=== PATIENT | female | born 1990 ===

== ENCOUNTER 2016-12-24 20:46 | Emergency (ER) | payer OTHER ==
[2016-12-24] MEDS: Albuterol-Ipratrop 3 mg / 0.5 (3 ml) UD IH SCH ×3 (20:50→21:18)
[2016-12-24 20:54] VITALS: BMI 19.3
[2016-12-24 20:58] VITALS: TEMP 97.8
--- NOTE | 2016-12-24 22:19 | ED PDOC ---
Arrival/HPI - General Chief Complaint: Respiratory Distress Time Seen by Provider: 12/24/16 20:49 Historian: Patient - History of Present Illness Narrative History of Present Illness (Text): 12/24/16 22:16 Laura Phipps is a 26 year old female, with a history of bronchial asthma, presents to the emergency department complaining of shortness of breath and wheezing. States she used home breathing treatments for minimal relief. Denies fever, chills, headache, dizziness, chest pain, nausea, vomiting, diarrhea, abdominal pain, urinary symptoms, or any other complaints at this time. Time/Duration: 1 hour Symptom Onset: Gradual Symptom Course: Unchanged Severity Level: Mild Activities at Onset: Light Past Medical History - Provider Review Nursing Documentation Reviewed: Yes - Infectious Disease Hx of Infectious Diseases: None - Cardiac Hx Cardiac Disorders: No - Pulmonary Hx Respiratory Disorders: Yes Hx Asthma: Yes - Neurological Hx Neurological Disorder: No - HEENT Hx HEENT Disorder: No - Renal Hx Renal Disorder: No - Endocrine/Metabolic Hx Endocrine Disorders: No - Hematological/Oncological Hx Blood Disorders: No - Integumentary Hx Dermatological Disorder: No - Musculoskeletal/Rheumatological Hx Musculoskeletal Disorders: No - Gastrointestinal Hx Gastrointestinal Disorders: No - Genitourinary/Gynecological Hx Genitourinary Disorders: No - Psychiatric Hx Psychophysiologic Disorder: No Hx Substance Use: No - Surgical History Other/Comment: Breast augmentation. Liposuction - Anesthesia Hx Anesthesia: Yes Hx Anesthesia Reactions: No Hx Malignant Hyperthermia: No Family/Social History - Physician Review Nursing Documentation Reviewed: Yes Family/Social History: No Known Family HX Smoking Status: smk hookah Hx Alcohol Use: Yes Hx Substance Use: No Allergies/Home Meds Allergies/Adverse Reactions: Allergies pollen extracts Allergy (Verified 10/01/16 16:35) SHORTNESS OF BREATH maple Allergy (Uncoded 09/10/14 13:16) RASH Review of Systems - Physician Review All systems were reviewed & negative as marked: Yes - Review of Systems Constitutional: Normal. absent: Fatigue, Fevers Respiratory: SOB. absent: Cough, Sputum Cardiovascular: Normal. absent: Chest Pain, Palpitations Gastrointestinal: Normal. absent: Abdominal Pain, Diarrhea, Nausea, Vomiting Neurological: Normal. absent: Headache, Dizziness Psychiatric: Normal Physical Exam Vital Signs Reviewed: Yes Vital Signs Temp Pulse Resp BP Pulse Ox 12/24/16 20:58 97.8 F 110 H 26 H 116/88 95 12/24/16 20:46 26 H 100 Temperature: Afebrile Blood Pressure: Normal Pulse: Tachycardic Respiratory Rate: Normal Appearance: Positive for: Well-Appearing, Non-Toxic, Comfortable Pain Distress: None Mental Status: Positive for: Alert and Oriented X 3 - Systems Exam Head: Present: Atraumatic, Normocephalic Pupils: Present: PERRL Extroacular Muscles: Present: EOMI Conjunctiva: Present: Normal Mouth: Present: Moist Mucous Membranes Respiratory/Chest: Present: Wheezes (wheezing bilaterally ). No: Respiratory Distress, Accessory Muscle Use Cardiovascular: Present: Regular Rate and Rhythm, Normal S1, S2. No: Murmurs Abdomen: Present: Normal Bowel Sounds. No: Tenderness, Distention, Peritoneal Signs, Rebound, Guarding Upper Extremity: Present: Normal Inspection. No: Cyanosis, Edema Lower Extremity: Present: Normal Inspection. No: Edema Neurological: Present: GCS=15, CN II-XII Intact, Speech Normal, Motor Func Grossly Intact, Normal Sensory Function Skin: Present: Warm, Dry, Normal Color. No: Rashes Psychiatric: Present: Alert, Oriented x 3, Normal Insight, Normal Concentration Medical Decision Making ED Course and Treatment: 12/24/16 22:19 Impression: A 26 year old female who presents to the emergency department complaining of shortness of breath and wheezing. Plan: -- Duoneb -- Solumedrol Progress Notes: - Medication Orders Current Medication Orders: Discontinued Medications Albuterol/Ipratropium (Duoneb 3 Mg/0.5 Mg (3 Ml) Ud) 3 ml IH Q15M CHRISTIANO Stop: 12/24/16 21:31 Last Admin: 12/24/16 21:18 Dose: 3 ml Methylprednisolone (Solu-Medrol) 125 mg IVP STAT STA Stop: 12/24/16 20:50 Last Admin: 12/24/16 20:49 Dose: 125 mg - Juneibe Statement The provider has reviewed the documentation as recorded by the Rozina Singleton Provider Attestation: All medical record entries made by the Rozina were at my direction and personally dictated by me. I have reviewed the chart and agree that the record accurately reflects my personal performance of the history, physical exam, medical decision making, and the department course for this patient. I have also personally directed, reviewed, and agree with the discharge instructions and disposition. Disposition/Present on Arrival - Present on Arrival Any Indicators Present on Arrival: No History of DVT/PE: No History of Uncontrolled Diabetes: No Urinary Catheter: No History of Decub. Ulcer: No History Surgical Site Infection Following: None - Disposition Have Diagnosis and Disposition been Completed?: Yes Diagnosis: Asthma attack Disposition: HOME/ ROUTINE Disposition Time: 22:34 Patient Plan: Discharge Condition: GOOD Discharge Instructions (ExitCare): Asthma (ED) Additional Instructions: Take meds as prescribed/follow up with your doctor Prescriptions: predniSONE [Prednisone] 40 mg PO DAILY #10 tab Albuterol HFA [Ventolin HFA 90 mcg/actuation (8 g)] 2 puff IH [id number] PRN #1 puff PRN Reason: Wheezing Referrals: Payton Orantes MD [Primary Care Provider] - Follow up with primary
[2016-12-24 22:43] VITALS: BP 116/60; PULSE 100; RESP 18; O2SAT 99
== END 2016-12-24 22:45 | disposition home or self-care (01) ==
LOC: ED 20:46
DX: J45.909 Unspecified asthma, uncomplicated (principal); Z72.0 Tobacco use
CPT/HCPCS: 96374; 99284; J2930

== ENCOUNTER 2017-04-10 01:50 | Emergency (ER) | payer OTHER ==
--- NOTE | 2017-04-10 01:54 | ED PDOC ---
Arrival/HPI - General Time Seen by Provider: 04/10/17 01:53 Historian: Patient, Parent - History of Present Illness Narrative History of Present Illness (Text): 04/10/17 01:54 Laura Phipps is a 26 year old female, whose past medical history includes asthma and seasonal allergies, who presents to the Emergency department brought in by EMS complaining of shortness of breath and wheezing tonight. Patient states symptoms are similar in quality to previous asthma symptoms but notes it may have been worsened due to recent humid weather. Patient received multiple nebulizer treatments, magnesium, and Solu-medrol in the field with some relief. Patient denies any fever, chills, chest pain, nausea, vomiting, diarrhea, neck pain, headache, dizziness, or any other complaints. Time/Duration: Other (tonight) Symptom Onset: Gradual Symptom Course: Unchanged Activities at Onset: Rest, Light Context: Home Past Medical History - Provider Review Nursing Documentation Reviewed: Yes - Infectious Disease Hx of Infectious Diseases: None - Cardiac Hx Cardiac Disorders: No - Pulmonary Hx Respiratory Disorders: Yes Hx Asthma: Yes - Neurological Hx Neurological Disorder: No - HEENT Hx HEENT Disorder: No - Renal Hx Renal Disorder: No - Endocrine/Metabolic Hx Endocrine Disorders: No - Hematological/Oncological Hx Blood Disorders: No - Integumentary Hx Dermatological Disorder: No - Musculoskeletal/Rheumatological Hx Musculoskeletal Disorders: No - Gastrointestinal Hx Gastrointestinal Disorders: No - Genitourinary/Gynecological Hx Genitourinary Disorders: No - Psychiatric Hx Psychophysiologic Disorder: No Hx Substance Use: No - Surgical History Other/Comment: Breast augmentation. Liposuction - Anesthesia Hx Anesthesia: Yes Hx Anesthesia Reactions: No Hx Malignant Hyperthermia: No Family/Social History - Physician Review Nursing Documentation Reviewed: Yes Family/Social History: Unknown Family HX Smoking Status: smk hookah Hx Alcohol Use: Yes Hx Substance Use: No Allergies/Home Meds Allergies/Adverse Reactions: Allergies pollen extracts Allergy (Verified 10/01/16 16:35) SHORTNESS OF BREATH maple Allergy (Uncoded 09/10/14 13:16) RASH Review of Systems - Physician Review All systems were reviewed & negative as marked: Yes - Review of Systems Constitutional: Normal. absent: Fevers Eyes: Normal ENT: Normal Respiratory: SOB, Wheezing Cardiovascular: Normal. absent: Chest Pain Gastrointestinal: Normal. absent: Abdominal Pain, Diarrhea, Nausea, Vomiting Genitourinary Female: Normal. absent: Dysuria, Frequency, Hematuria, Urine Output Changes Musculoskeletal: Normal. absent: Back Pain, Neck Pain Skin: Normal. absent: Rash Neurological: Normal. absent: Headache, Dizziness Endocrine: Normal Hemo/Lymphatic: Normal Psychiatric: Normal Physical Exam Vital Signs Reviewed: Yes Vital Signs Temp Pulse Resp BP Pulse Ox 04/10/17 02:56 119 H 20 94/53 L 100 04/10/17 02:05 98.2 F 112 H 17 96/54 L 100 04/10/17 02:00 24 04/10/17 01:55 98.2 F 148 H 39 H 129/72 97 Temperature: Afebrile Blood Pressure: Normal Pulse: Tachycardic Respiratory Rate: Normal Appearance: Positive for: Well-Appearing, Non-Toxic, Comfortable Pain Distress: None Mental Status: Positive for: Alert and Oriented X 3 - Systems Exam Head: Present: Atraumatic, Normocephalic Pupils: Present: PERRL Extroacular Muscles: Present: EOMI Conjunctiva: Present: Normal Mouth: Present: Moist Mucous Membranes Neck: Present: Normal Range of Motion Respiratory/Chest: Present: Wheezes (Slight expiratory wheeze). No: Respiratory Distress, Accessory Muscle Use Cardiovascular: Present: Regular Rate and Rhythm, Normal S1, S2. No: Murmurs Abdomen: Present: Normal Bowel Sounds. No: Tenderness, Distention, Peritoneal Signs Back: Present: Normal Inspection Upper Extremity: Present: Normal Inspection. No: Cyanosis, Edema Lower Extremity: Present: Normal Inspection. No: Edema Neurological: Present: GCS=15, CN II-XII Intact, Speech Normal Skin: Present: Warm, Dry, Normal Color. No: Rashes Psychiatric: Present: Alert, Oriented x 3, Normal Insight, Normal Concentration Medical Decision Making ED Course and Treatment: 04/10/17 01:54 Impression: 26 year old female complaining of shortness of breath and wheezing. Differential Diagnosis included but are not limited to: asthma exacerbation Plan: -- EKG -- Chest X-ray -- Labs -- Duoneb -- Reassess and disposition Prior Visits: Notes and results from previous visits were reviewed. On 12/24/2016, pt was seen in the Emergency department for shortness of breath and wheezing. Pt was d/c home. Progress Notes: Reviewed EKG, sinus tachycardia at [address]-segment elevations or depressions, no T-wave inversions, normal intervals. 04/10/17 04:41 Reviewed radiology, Chest X-ray shows no acute processes. 04/10/17 05:04 On reevaluation, the patient 100% feels better and is in no acute distress. Wheezing has resolved. Patient is stable for discharge. Patient was instructed to follow up with physician/clinic in 1-2 days or return if symptoms persist/ worsen or new concerning symptoms arise. - Lab Interpretations Lab Results: 04/10/17 02:04 04/10/17 02:04 Lab Results 04/10/17 02:04: WBC 12.3 H D, RBC 4.68, Hgb 14.0, Hct 40.5, MCV 86.5, MCH 29.9, MCHC 34.6, RDW 12.3, Plt Count 290, MPV 9.7 04/10/17 02:04: Sodium 143, Potassium 3.2 L, Chloride 107, Carbon Dioxide 23, Anion Gap 16, BUN 8, Creatinine 0.7, Est GFR ( Amer) > 60, Est GFR (Non- Af Amer) > 60, Random Glucose 146 H, Calcium 8.6, Total Bilirubin 0.5, AST 29, ALT 24, Alkaline Phosphatase 98, Total Protein 7.3, Albumin 3.9, Globulin 3.4, Albumin/Globulin Ratio 1.2 I have reviewed the lab results: Yes - RAD Interpretation Radiology Orders: 04/10/17 02:00 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 I have reviewed the chart and agree that the record accurately reflects my personal performance of the history, physical exam, medical decision making, and the department course for this patient. I have also personally directed, reviewed, and agree with the discharge instructions and disposition. Disposition/Present on Arrival - Present on Arrival Any Indicators Present on Arrival: No History of DVT/PE: No History of Uncontrolled Diabetes: No Urinary Catheter: No History Surgical Site Infection Following: None - Disposition Have Diagnosis and Disposition been Completed?: Yes Diagnosis: Asthma exacerbation Disposition: HOME/ ROUTINE Disposition Time: 05:04 Patient Plan: Discharge Patient Problems: Current Active Problems Problem Status Onset Asthma exacerbation Acute Condition: GOOD Discharge Instructions (ExitCare): Asthma (ED) Additional Instructions: Meds as prescribed/follow up with your doctor this week/any recurrent worsening symptoms return to the emergency room Prescriptions: predniSONE [Prednisone] 40 mg PO DAILY #10 tab
[2017-04-10 01:56] VITALS: BMI 20.7
[2017-04-10 02:03] VITALS: TEMP 98.2
[2017-04-10] MEDS ORDERED: Albuterol-Ipratrop 3 mg / 0.5 (3 ml) UD IH STA (02:06)
[2017-04-10 02:20] LABS: HEMATOCRIT 40.5 % (36.0-48.0); MEAN CELL VOLUME 86.5 fl (80.0-105.0); MEAN CORPUSCULAR HEMOGLOBIN 29.9 pg (25.0-35.0); MEAN CORPUSCULAR HGB CONC 34.6 g/dl (31.0-37.0); MEAN PLATELET VOLUME 9.7 fl (7.0-11.0); RED CELL DISTRIBUTION WIDTH 12.3 % (11.5-14.5); WHITE BLOOD COUNT 12.3 10^3/ul (4.5-11.0)
[2017-04-10 02:32] LABS: ALB/GLOB RATIO 1.2 (1.1-1.8); ALKALINE PHOSPHATASE 98 U/L (38-133); BILIRUBIN,TOTAL 0.5 mg/dL (0.2-1.3); BLOOD UREA NITROGEN 8 mg/dL (7-21); CALCIUM 8.6 mg/dL (8.4-10.5); CARBON DIOXIDE 23 mmol/L (21-33); CHLORIDE 107 mmol/L (95-110); GFR AFRICAN-AMERICAN > 60; GLUCOSE,RANDOM 146 mg/dL (70-110); POTASSIUM 3.2 mmol/L (3.6-5.0); SODIUM 143 mmol/L (132-148); TOTAL PROTEIN 7.3 g/dL (5.8-8.3)
[2017-04-10 02:38] LABS: ALT/SGPT 24 U/L (7-56); AST/SGOT 29 U/L (15-39)
[2017-04-10 02:57] VITALS: BP 94/53
[2017-04-10] MEDS ORDERED: Potassium Chloride 20 mEq ER Tab PO STA (03:28)
[2017-04-10 05:15] VITALS: RESP 16
[2017-04-10 05:16] VITALS: PULSE 97; O2SAT 97
--- NOTE | 2017-04-10 07:06 | RAD ---
HISTORY: sob COMPARISON: No prior. FINDINGS: LUNGS: No active pulmonary disease. PLEURA: No significant pleural effusion identified, no pneumothorax apparent. CARDIOVASCULAR: Normal. OSSEOUS STRUCTURES: No significant abnormalities. VISUALIZED UPPER ABDOMEN: Normal. OTHER FINDINGS: None. IMPRESSION: No active disease.
--- NOTE | 2017-04-10 17:11 | CARD ---
APPROVED REPORT EKG Measurement Heart [id number] <Conclusion> Sinus tachycardia Otherwise normal ECG
== END 2017-04-10 05:16 | disposition home or self-care (01) ==
LOC: ED 01:50
DX: J45.901 Unspecified asthma with (acute) exacerbation (principal)

== ENCOUNTER 2017-04-29 02:22 | Emergency (ER) | payer OTHER ==
[2017-04-29] MEDS ORDERED: Albuterol-Ipratrop 3 mg / 0.5 (3 ml) UD ONE (02:26)
--- NOTE | 2017-04-29 02:29 | ED PDOC ---
Arrival/HPI - General Time Seen by Provider: 04/29/17 02:24 Historian: Patient, EMS - History of Present Illness Narrative History of Present Illness (Text): 04/29/17 02:29 Laura Phipps is a 26 year old female, whose past medical history includes asthma and seasonal allergies, who presents to the Emergency department brought in by EMS complaining of shortness of breath and wheezing tonight. Patient states symptoms are similar in quality to previous asthma symptoms. Patient states she had steroid nebulizer treatments at home. Patient received multiple nebulizer treatments and IV Solu-medrol in the field with some relief. Patient denies any fever, chills, chest pain, nausea, vomiting, diarrhea, neck pain, headache, dizziness, or any other complaints. Time/Duration: Other (tonight) Symptom Onset: Gradual Symptom Course: Unchanged Activities at Onset: Light Context: Home Past Medical History - Provider Review Nursing Documentation Reviewed: Yes - Infectious Disease Hx of Infectious Diseases: None - Cardiac Hx Cardiac Disorders: No - Pulmonary Hx Respiratory Disorders: Yes Hx Asthma: Yes - Neurological Hx Neurological Disorder: No - HEENT Hx HEENT Disorder: No - Renal Hx Renal Disorder: No - Endocrine/Metabolic Hx Endocrine Disorders: No - Hematological/Oncological Hx Blood Disorders: No - Integumentary Hx Dermatological Disorder: No - Musculoskeletal/Rheumatological Hx Musculoskeletal Disorders: No - Gastrointestinal Hx Gastrointestinal Disorders: No - Genitourinary/Gynecological Hx Genitourinary Disorders: No - Psychiatric Hx Psychophysiologic Disorder: No Hx Substance Use: No - Surgical History Other/Comment: Breast augmentation. Liposuction - Anesthesia Hx Anesthesia: Yes Hx Anesthesia Reactions: No Hx Malignant Hyperthermia: No Family/Social History - Physician Review Nursing Documentation Reviewed: Yes Family/Social History: Unknown Family HX Smoking Status: smk hookah Hx Alcohol Use: Yes Hx Substance Use: No Allergies/Home Meds Allergies/Adverse Reactions: Allergies pollen extracts Allergy (Verified 10/01/16 16:35) SHORTNESS OF BREATH maple Allergy (Uncoded 09/10/14 13:16) RASH Review of Systems - Physician Review All systems were reviewed & negative as marked: Yes - Review of Systems Constitutional: Normal. absent: Fevers Eyes: Normal ENT: Normal Respiratory: SOB, Wheezing Cardiovascular: Normal. absent: Chest Pain Gastrointestinal: Normal. absent: Abdominal Pain, Diarrhea, Nausea, Vomiting Genitourinary Female: Normal. absent: Dysuria, Frequency, Hematuria Musculoskeletal: Normal. absent: Back Pain, Neck Pain Skin: Normal. absent: Rash Neurological: Normal. absent: Headache, Dizziness Endocrine: Normal Hemo/Lymphatic: Normal Psychiatric: Normal Physical Exam Vital Signs Reviewed: Yes Vital Signs Temp Pulse Resp BP Pulse Ox 04/29/17 04:22 98.2 F 92 H 18 128/84 99 04/29/17 02:39 98.2 F 121 H 18 131/80 97 04/29/17 02:22 24 Temperature: Afebrile Blood Pressure: Normal Pulse: Regular Respiratory Rate: Normal Appearance: Positive for: Well-Appearing, Non-Toxic, Comfortable Pain Distress: None Mental Status: Positive for: Alert and Oriented X 3 - Systems Exam Head: Present: Atraumatic, Normocephalic Pupils: Present: PERRL Extroacular Muscles: Present: EOMI Conjunctiva: Present: Normal Mouth: Present: Moist Mucous Membranes Neck: Present: Normal Range of Motion Respiratory/Chest: Present: Wheezes (Wheezing bilaterally). No: Respiratory Distress, Accessory Muscle Use Cardiovascular: Present: Regular Rate and Rhythm, Normal S1, S2. No: Murmurs Abdomen: Present: Normal Bowel Sounds. No: Tenderness, Distention, Peritoneal Signs Back: Present: Normal Inspection Upper Extremity: Present: Normal Inspection. No: Cyanosis, Edema Lower Extremity: Present: Normal Inspection. No: Edema Neurological: Present: GCS=15, CN II-XII Intact, Speech Normal Skin: Present: Warm, Dry, Normal Color. No: Rashes Psychiatric: Present: Alert, Oriented x 3, Normal Insight, Normal Concentration Medical Decision Making ED Course and Treatment: 04/29/17 02:29 Impression: 26 year old female c/o shortness of breath and wheezing tonight. Differential Diagnosis included but are not limited to: asthma exacerbation Plan: -- Labs -- Duoneb -- Reassess and disposition Progress Notes: Pt received Solu-medrol IV in the field and states she was unable to fill her prescription of medication for her nebulizer machine earlier today. 04/29/17 04:10 On re-evaluation, pt feels 100% better. Lungs are clear to auscultation bilaterally. All questions answered and there is agreement with the plan to discharge home with instructions. Patient stable for discharge. Instructed to follow-up with her PMD or return if symptoms persist or worsen. - Medication Orders Current Medication Orders: Discontinued Medications Albuterol/Ipratropium (Duoneb 3 Mg/0.5 Mg (3 Ml) Ud) Confirm Administered Dose 9 ml .ROUTE .STK-MED ONE Stop: 04/29/17 02:27 Last Admin: 04/29/17 04:38 Dose: Albuterol/Ipratropium (Duoneb 3 Mg/0.5 Mg (3 Ml) Ud) 3 ml IH ONCE STA Stop: 04/29/17 02:42 Last Admin: 04/29/17 02:26 Dose: 3 ml Albuterol/Ipratropium (Duoneb 3 Mg/0.5 Mg (3 Ml) Ud) 3 ml IH ONCE STA Stop: 04/29/17 03:31 Last Admin: 04/29/17 03:30 Dose: 3 ml - Scribe Statement The provider has reviewed the documentation as recorded by the Scribfunmilayo Martinez All medical record entries made by the Scribe were at my direction and personally dictated by me. I have reviewed the chart and agree that the record accurately reflects my personal performance of the history, physical exam, medical decision making, and the department course for this patient. I have also personally directed, reviewed, and agree with the discharge instructions and disposition. Disposition/Present on Arrival - Present on Arrival Any Indicators Present on Arrival: No History of DVT/PE: No History of Uncontrolled Diabetes: No Urinary Catheter: No History of Decub. Ulcer: No History Surgical Site Infection Following: None - Disposition Have Diagnosis and Disposition been Completed?: Yes Diagnosis: Asthma exacerbation Disposition: HOME/ ROUTINE Disposition Time: 04:07 Patient Plan: Discharge Condition: GOOD Discharge Instructions (ExitCare): Asthma (ED) Additional Instructions: Meds as prescribed/follow up with your doctor this week Prescriptions: predniSONE [Prednisone] 40 mg PO DAILY #10 tab Forms: [employer] ([place])
[2017-04-29 02:38] VITALS: BMI 20.7
[2017-04-29] MEDS ORDERED: Albuterol-Ipratrop 3 mg / 0.5 (3 ml) UD IH STA ×2 (02:41→03:30)
[2017-04-29 02:43] VITALS: RESP 18; TEMP 98.2
[2017-04-29 04:41] VITALS: BP 128/84; PULSE 92; O2SAT 99
== END 2017-04-29 04:22 | disposition home or self-care (01) ==
LOC: ED 02:22
DX: J45.901 Unspecified asthma with (acute) exacerbation (principal); Z72.0 Tobacco use

== ENCOUNTER 2017-06-12 23:48 | Emergency (ER) | payer OTHER ==
[2017-06-12 23:48] VITALS: BMI 20.7
[2017-06-12 23:53] VITALS: BP 118/83; PULSE 136; RESP 26; TEMP 98.2; O2SAT 100
[2017-06-12] MEDS ORDERED: Levalbuterol 1.25 MG/3 ML Inhal Soln UD IH STA (23:58)
[2017-06-13] MEDS ORDERED: Magnesium Sulfate 2 GM in Sodium Chloride 0.9% 100 ML IVPB ONE (00:01)
--- NOTE | 2017-06-13 00:32 | ED PDOC ---
Arrival/HPI <Sandi Freed - Last Filed: 06/13/17 01:11> <Randolph White - Last Filed: 06/13/17 01:25> - General Chief Complaint: Shortness Of Breath Time Seen by Provider: 06/12/17 23:49 - History of Present Illness Narrative History of Present Illness (Text): 06/13/17 00:29 CC: SOB This patient is a 26yo F w/ a PMhx of moderate persistent asthma who is coming to the ED with SOB. She states she has not been taking her advair for the past 3 weeks because "she has forgot" to fill her prescription. She states her allergies have been acting up as well, which is typically a trigger for her asthma. She does not smoke cigarettes. She does not know her normal peak flow number. She is currently speaking in full sentences, appears well, is NOT tripoding, and has no stridor. She denies fevers/chills, ROBERTS, CP, abdominal pain , N/V/D, dysuria/freq/urg, or lower extremity pain. (Randolph White) Past Medical History - Infectious Disease Hx of Infectious Diseases: None - Cardiac Hx Cardiac Disorders: No - Pulmonary Hx Asthma: Yes - Neurological Hx Neurological Disorder: No - HEENT Hx HEENT Disorder: No - Renal Hx Renal Disorder: No - Endocrine/Metabolic Hx Endocrine Disorders: No - Hematological/Oncological Hx Blood Disorders: No - Integumentary Hx Dermatological Disorder: No - Musculoskeletal/Rheumatological Hx Musculoskeletal Disorders: No - Gastrointestinal Hx Gastrointestinal Disorders: No - Genitourinary/Gynecological Hx Genitourinary Disorders: No - Psychiatric Hx Psychophysiologic Disorder: No Hx Substance Use: No - Surgical History Other/Comment: Breast augmentation. Liposuction - Anesthesia Hx Anesthesia: Yes Hx Anesthesia Reactions: No Hx Malignant Hyperthermia: No <Randolph White - Last Filed: 06/13/17 01:25> Family/Social History - Physician Review Nursing Documentation Reviewed: Yes Family/Social History: No Known Family HX Smoking Status: Former Smoker Hx Alcohol Use: Yes Frequency of alcohol use: Socially Hx Substance Use: No <Randolph White - Last Filed: 06/13/17 01:25> Allergies/Home Meds <Sandi Freed - Last Filed: 06/13/17 01:11> <Randolph White - Last Filed: 06/13/17 01:25> Allergies/Adverse Reactions: Allergies pollen extracts Allergy (Verified 06/12/17 23:57) SHORTNESS OF BREATH maple Allergy (Uncoded 06/12/17 23:57) RASH Review of Systems - Review of Systems Constitutional: absent: Fatigue, Weight Change Eyes: absent: Vision Changes, Photophobia ENT: absent: Hearing Changes Respiratory: SOB. absent: Cough Cardiovascular: absent: Chest Pain Gastrointestinal: absent: Abdominal Pain Genitourinary Female: absent: Dysuria, Frequency Musculoskeletal: absent: Arthralgias, Back Pain Skin: absent: Rash Neurological: absent: Headache Endocrine: absent: Diaphoresis Hemo/Lymphatic: absent: Adenopathy Psychiatric: absent: Anxiety <Randolph White - Last Filed: 06/13/17 01:25> Physical Exam Temperature: Afebrile Blood Pressure: Normal Pulse: Regular Respiratory Rate: Normal Appearance: Positive for: Well-Appearing, Non-Toxic, Comfortable Mental Status: Positive for: Alert and Oriented X 3 - Systems Exam Head: Present: Atraumatic Pupils: Present: PERRL Extroacular Muscles: Present: EOMI Conjunctiva: Present: Normal Mouth: Present: Moist Mucous Membranes Neck: Present: Normal Range of Motion. No: Meningeal Signs Respiratory/Chest: Present: Good Air Exchange, Wheezes. No: Clear to Auscultation, Respiratory Distress, Accessory Muscle Use Cardiovascular: Present: Regular Rate and Rhythm, Normal S1, S2 Abdomen: No: Tenderness, Distention, Normal Bowel Sounds Back: Present: Normal Inspection. No: CVA Tenderness Upper Extremity: Present: Normal Inspection. No: Cyanosis, Edema Lower Extremity: Present: Normal Inspection. No: Edema, CALF TENDERNESS Neurological: Present: GCS=15, CN II-XII Intact, Speech Normal Skin: Present: Warm, Dry Lymphatic: No: Cervical Adenopathy Psychiatric: Present: Alert, Oriented x 3 <Randolph White - Last Filed: 06/13/17 01:25> Vital Signs Temp Pulse Resp BP Pulse Ox 06/12/17 23:51 98.2 F 136 H 26 H 118/83 100 Medical Decision Making - EKG Interpretation Interpreted by ED Physician: Yes Type: 12 lead EKG Comparison: No previous EKG avail. <Sandi Freed - Last Filed: 06/13/17 01:11> <Randolph White - Last Filed: 06/13/17 01:25> ED Course and Treatment: 06/13/17 00:32 Chest X-ray Mag Sulfate 2g, Solu-medrol 125, Xopenex, peak flow Patient is speaking in full sentences in no acute distress has never been intubated before dispo and reassess 06/13/17 00:43 patient is resting comfortably in bed patient given prescription for her advair inhaler 06/13/17 01:23 The patient is stable for d/c as per Dr. Freed She is speaking in full sentences and is no longer short of breath She needs to f/u with her PMD within the week and with a work distributor for PFT testing (Randolph White) - RAD Interpretation Radiology Orders: 06/12/17 23:58 CHEST PORTABLE [RAD] Stat - EKG Interpretation EKG Interpretation (Text): 06/13/17 01:11 NSR at 93 BPM,No ectopy,no acte STTW changes.No old EKG's for comparison ( Sandi Freed) - Medication Orders Current Medication Orders: Discontinued Medications Magnesium Sulfate 2 gm/ Sodium (Chloride) 104 mls @ 102 mls/hr IVPB ONCE ONE Stop: 06/13/17 01:02 Last Admin: 06/13/17 00:27 Dose: 102 mls/hr eMAR Start Stop Document 06/13/17 00:27 [facility] (Rec: 06/13/17 00:27 [facility] [id number]) Intravenous Solution Start Date 06/13/17 Start Time 12:25 End Date 06/13/17 End time 13:25 Total Infusion Time 60 Levalbuterol HCl (Xopenex) 1.25 mg IH STAT STA Stop: 06/12/17 23:59 Last Admin: 06/13/17 00:26 Dose: 1.25 mg Methylprednisolone (Solu-Medrol) 125 mg IVP STAT STA Stop: 06/13/17 00:03 Last Admin: 06/13/17 00:27 Dose: 125 mg IVP Administration Document 06/13/17 00:27 [facility] (Rec: 06/13/17 00:27 [facility] [id number]) Charges for Administration # of IVP Administrations 1 Disposition/Present on Arrival <Sandi Freed - Last Filed: 06/13/17 01:11> - Present on Arrival Any Indicators Present on Arrival: No History of DVT/PE: No History of Uncontrolled Diabetes: No Urinary Catheter: No History of Decub. Ulcer: No History Surgical Site Infection Following: None - Disposition Have Diagnosis and Disposition been Completed?: Yes Disposition Time: 01:24 Patient Plan: Discharge <Randolph White - Last Filed: 06/13/17 01:25> - Disposition Diagnosis: Asthma Disposition: HOME/ ROUTINE Condition: FAIR Additional Instructions: Please fill your prescription for advair Please see your PMD as soon as you can to follow up for medication reconciliation and for referral to a Lung Doctor It was a pleasure taking care of you. Please feel better. Prescriptions: Salmeterol Xinafoate/Fluticaso [Advair Hfa 230/21] 60 puff IH BID #1 inhaler Forms: [employer] (Italian)
--- NOTE | 2017-06-13 11:08 | CARD ---
APPROVED REPORT EKG Measurement Heart [id number] <Conclusion> Sinus tachycardia RVCD
== END 2017-06-13 02:00 | disposition home or self-care (01) ==
LOC: ED 23:48
DX: J45.909 Unspecified asthma, uncomplicated (principal)
CPT/HCPCS: 93005; 96365; 96375; 99284; J2930; J3475

== ENCOUNTER 2017-07-23 05:08 | Observation (INO) | payer OTHER ==
--- NOTE | 2017-07-23 05:19 | ED PDOC ---
Arrival/HPI - General Chief Complaint: Respiratory Distress Time Seen by Provider: 07/23/17 05:19 Historian: Patient, EMS - History of Present Illness Narrative History of Present Illness (Text): 07/23/17 05:19 Laura Phipps is a 26 year old female, whose past medical history includes asthma and seasonal allergies, who presents to the Emergency department brought in by EMS complaining of shortness of breath, wheezing, and cough tonight. Patient states symptoms are similar in quality to previous asthma symptoms. Patient states she had steroid nebulizer treatments at home. Patient received multiple nebulizer treatments, magnesium sulfate, and IV Solu-medrol in the field. Patient denies any fever, chills, chest pain, nausea, vomiting, diarrhea , neck pain, headache, dizziness, or any other complaints. Time/Duration: Other (tonight) Symptom Onset: Gradual Symptom Course: Unchanged Activities at Onset: Light Context: Home Past Medical History - Provider Review Nursing Documentation Reviewed: Yes - Infectious Disease Hx of Infectious Diseases: None - Cardiac Hx Cardiac Disorders: No - Pulmonary Hx Asthma: Yes - Neurological Hx Neurological Disorder: No - HEENT Hx HEENT Disorder: No - Renal Hx Renal Disorder: No - Endocrine/Metabolic Hx Endocrine Disorders: No - Hematological/Oncological Hx Blood Disorders: No - Integumentary Hx Dermatological Disorder: No - Musculoskeletal/Rheumatological Hx Musculoskeletal Disorders: No - Gastrointestinal Hx Gastrointestinal Disorders: No - Genitourinary/Gynecological Hx Genitourinary Disorders: No - Psychiatric Hx Psychophysiologic Disorder: No Hx Substance Use: No - Surgical History Other/Comment: Breast augmentation. Liposuction - Anesthesia Hx Anesthesia: Yes Hx Anesthesia Reactions: No Hx Malignant Hyperthermia: No Family/Social History - Physician Review Nursing Documentation Reviewed: Yes Family/Social History: Unknown Family HX Smoking Status: Former Smoker Hx Alcohol Use: Yes Hx Substance Use: No Allergies/Home Meds Allergies/Adverse Reactions: Allergies pollen extracts Allergy (Verified 06/12/17 23:57) SHORTNESS OF BREATH maple Allergy (Uncoded 06/12/17 23:57) RASH Review of Systems - Physician Review All systems were reviewed & negative as marked: Yes - Review of Systems Constitutional: Normal. absent: Fevers Eyes: Normal ENT: Normal Respiratory: SOB, Cough, Wheezing Cardiovascular: Normal. absent: Chest Pain Gastrointestinal: Normal. absent: Abdominal Pain, Diarrhea, Nausea, Vomiting Genitourinary Female: Normal. absent: Dysuria, Frequency, Hematuria, Urine Output Changes Musculoskeletal: Normal. absent: Back Pain, Neck Pain Skin: Normal. absent: Rash Neurological: Normal. absent: Headache, Dizziness Endocrine: Normal Hemo/Lymphatic: Normal Psychiatric: Normal Physical Exam Vital Signs Reviewed: Yes Vital Signs Temp Pulse Resp BP Pulse Ox 07/23/17 05:14 98.1 F 149 H 30 H 107/70 96 Temperature: Afebrile Blood Pressure: Normal Pulse: Tachycardic Respiratory Rate: Normal Appearance: Positive for: Well-Appearing, Non-Toxic, Comfortable Pain Distress: None Mental Status: Positive for: Alert and Oriented X 3 - Systems Exam Head: Present: Atraumatic, Normocephalic Pupils: Present: PERRL Extroacular Muscles: Present: EOMI Conjunctiva: Present: Normal Mouth: Present: Moist Mucous Membranes Neck: Present: Normal Range of Motion Respiratory/Chest: Present: Wheezes (End-expiratory wheeze). No: Respiratory Distress, Accessory Muscle Use Cardiovascular: Present: Normal S1, S2, Tachycardic. No: Murmurs Abdomen: Present: Normal Bowel Sounds. No: Tenderness, Distention, Peritoneal Signs Back: Present: Normal Inspection Upper Extremity: Present: Normal Inspection. No: Cyanosis, Edema Lower Extremity: Present: Normal Inspection. No: Edema Neurological: Present: GCS=15, CN II-XII Intact, Speech Normal Skin: Present: Warm, Dry, Normal Color. No: Rashes Psychiatric: Present: Alert, Oriented x 3, Normal Insight, Normal Concentration Medical Decision Making ED Course and Treatment: 07/23/17 05:19 Impression: 26 year old female complaining of shortness of breath, wheezing, and cough tonight. Differential Diagnosis included but are not limited to: asthma exacerbation Plan: -- EKG -- Chest X-ray -- Labs -- Reassess and disposition Prior Visits: Notes and results from previous visits were reviewed. On 06/13/2017, pt was seen in the Emergency department for shortness of breath. Pt was d/c home. Progress Notes: 07/23/17 06:09 reviewed radiology, Chest X-ray shows no acute processes. 07/23/17 06:13 Reviewed EKG, sinus tachycardia at [address]-segment elevations or depressions, no T-wave inversions, normal intervals. 07/23/17 06:59 Pt. much improved but still wheezing.Will require further ongoing treatments.Case d/w Dr Smith.Accepts to his service.Mdical resident called. - Lab Interpretations Lab Results: 07/23/17 05:35 07/23/17 05:35 Lab Results 07/23/17 06:35: pCO2 37, pO2 121.0 H, HCO3 22.4, ABG pH 7.39, ABG Total CO2 23.5 , ABG O2 Saturation 99.7 H, ABG O2 Content 17.5, ABG Base Excess -2.2 L, ABG Hemoglobin 12.7, ABG Carboxyhemoglobin 1.8 H, POC ABG HHb (Measured) 0.3, ABG Methemoglobin 1.0, ABG O2 Capacity 17.6, Hgb O2 Saturation 97.0, FiO2 21.0 07/23/17 05:35: WBC 14.6 H, RBC 4.61, Hgb 13.7, Hct 40.0, MCV 86.8, MCH 29.7, MCHC 34.3, RDW 12.3, Plt Count 327, MPV 9.6 07/23/17 05:35: Sodium 141, Potassium 3.2 L, Chloride 107, Carbon Dioxide 22, Anion Gap 15, BUN 14, Creatinine 0.8, Est GFR ( Amer) > 60, Est GFR (Non- Af Amer) > 60, Random Glucose 144 H, Calcium 8.7, Total Bilirubin 0.7, AST 31, ALT 38, Alkaline Phosphatase 79, Total Protein 7.4, Albumin 4.1, Globulin 3.3, Albumin/Globulin Ratio 1.2 I have reviewed the lab results: Yes - RAD Interpretation Radiology Orders: 07/23/17 05:22 CHEST PORTABLE [RAD] Stat Information Technology Consultant: ED Physician - EKG Interpretation Interpreted by ED Physician: Yes Type: 12 lead EKG - Medication Orders Current Medication Orders: Albuterol/Ipratropium (Duoneb 3 Mg/0.5 Mg (3 Ml) Ud) 3 ml IH ONCE STA Stop: 07/23/17 06:59 Discontinued Medications Potassium Chloride (K-Dur 20 Meq Er Tab) 40 meq PO STAT STA Stop: 07/23/17 06:14 - Scribe Statement The provider has reviewed the documentation as recorded by the Rozina Martinez Provider Scribe Attestation: All medical record entries made by the Scribe were at my direction and personally dictated by me. I have reviewed the chart and agree that the record accurately reflects my personal performance of the history, physical exam, medical decision making, and the department course for this patient. I have also personally directed, reviewed, and agree with the discharge instructions and disposition. Disposition/Present on Arrival - Present on Arrival Any Indicators Present on Arrival: No History of DVT/PE: No History of Uncontrolled Diabetes: No Urinary Catheter: No History of Decub. Ulcer: No History Surgical Site Infection Following: None - Disposition Have Diagnosis and Disposition been Completed?: Yes Diagnosis: Status asthmaticus Disposition: HOSPITALIZED Disposition Time: 07:00 Patient Plan: Observation Condition: STABLE Forms: [employer] (Telugu)
[2017-07-23 05:47] LABS: MEAN CELL VOLUME 86.8 fl (80.0-105.0); MEAN CORPUSCULAR HEMOGLOBIN 29.7 pg (25.0-35.0); MEAN CORPUSCULAR HGB CONC 34.3 g/dl (31.0-37.0); MEAN PLATELET VOLUME 9.6 fl (7.0-11.0); RED CELL DISTRIBUTION WIDTH 12.3 % (11.5-14.5); WHITE BLOOD COUNT 14.6 10^3/ul (4.5-11.0)
[2017-07-23 06:03] LABS: BLOOD UREA NITROGEN 14 mg/dL (7-21); CALCIUM 8.7 mg/dL (8.4-10.5); CARBON DIOXIDE 22 mmol/L (21-33); CHLORIDE 107 mmol/L (98-107); GFR AFRICAN-AMERICAN > 60; GLUCOSE,RANDOM 144 mg/dL (70-110); POTASSIUM 3.2 mmol/L (3.6-5.0); SODIUM 141 mmol/L (132-148); TOTAL PROTEIN 7.4 g/dL (5.8-8.3)
[2017-07-23 06:04] LABS: ALB/GLOB RATIO 1.2 (1.1-1.8); ALKALINE PHOSPHATASE 79 U/L (38-126); ALT/SGPT 38 U/L (7-56); AST/SGOT 31 U/L (14-36); BILIRUBIN,TOTAL 0.7 mg/dL (0.2-1.3)
[2017-07-23] MEDS ORDERED: Potassium Chloride 20 mEq ER Tab PO STA (06:13)
[2017-07-23 06:37] LABS: ARTERIAL BLOOD GAS HCO3 22.4 mmol/L (21-28); ARTERIAL BLOOD GAS O2 CAPACITY 17.6 mL/dl (16-24); ARTERIAL BLOOD GAS O2 CONTENT 17.5 ML/dl (15-23); ARTERIAL BLOOD GAS PH 7.39 (7.35-7.45); CARBOXYHEMOGLOBIN 1.8 % (0.5-1.5); HHB 0.3 % (0-5)
[2017-07-23] MEDS ORDERED: Albuterol-Ipratrop 3 mg / 0.5 (3 ml) UD IH STA (06:58)
[2017-07-23] MEDS ORDERED: Cefepime IV 2 gm in NS 2 GM/100 ML BAG IVPB STA (07:01)
[2017-07-23] MEDS: MethylPREDNISolone 40 mg Vial IVP SCH ×4 (07:27→22:04)
[2017-07-23] MEDS: Levalbuterol 0.63 MG/3 ML Inhal Soln UD IH SCH ×3 (08:26→20:25)
--- NOTE | 2017-07-23 08:26 | RAD ---
HISTORY: sob COMPARISON: 04/10/2017 FINDINGS: LUNGS: No active pulmonary disease. PLEURA: No significant pleural effusion identified, no pneumothorax apparent. CARDIOVASCULAR: Normal. OSSEOUS STRUCTURES: No significant abnormalities. VISUALIZED UPPER ABDOMEN: Normal. OTHER FINDINGS: None. IMPRESSION: No active disease.
--- NOTE | 2017-07-23 08:32 | CP.PCM.HP ---
History of Present Illness - History of Present Illness History of Present Illness: PGY-[address] Sarah Mitchellelizabeth Phipps is a 26 year old female, former smoker, whose past medical history includes asthma, recurrent bronchitis, and seasonal allergies, c/o EMS complaining of shortness of breath, wheezing, and cough tonight. At baseline pt uses albuterol 2-3 times a week, mostly for exercise induced asthma. Starting 1 week ago, Pt had coughs with white phlgems, worsed at night, increased albuterol uses to 3 times a day with nebulizaers treatment. Breathing was worse x 3d, and pt came to ED for SOB, wheezez, worsening cough. In the field, Patient received multiple nebulizer treatments, magnesium sulfate, and IV Solu- medrol in the field. (+) sick contact, son, similar symptoms.(+) change in meds , increased in Advair dosesage but hasnt started using it yet. Denies travel. No home O2, never intubated Upon ED arrival, afebrile, HR 149, RR 30, requiring face mask. Chest X-ray shows no acute processes. EKG showed sinus tachycardia at [address]-segment elevations or depressions , no T-wave inversions, normal intervals. During interview this AM, pt is able to complete full sentences and states that breathing has much improves. ROS - Patient denies any fever, chest pain, nausea, vomiting, diarrhea, neck pain, headache, dizziness, or any other complaints. (+) chills, PMH Asthma x 3 years since , no seasonal allergies Former Smoker OBGYN , miscarriage 1 LMP 07/17, 7d, medium flow PSH Breast augmentation. Liposuction. 2016. Juli FH Son - asthma Mom - cervical cancer SH smoke hookah x 3-4 years. Stopped 1 year ago 1 glass of wine per month Denies drug All pollen extracts; maple, environmental allergemnt Med Advair PMD Kelli Mckeon Present on Admission - Present on Admission Any Indicators Present on Admission: No Review of Systems - Review of Systems All systems: reviewed and no additional remarkable complaints except (HPI) Past Patient History - Infectious Disease Hx of Infectious Diseases: None - Past Social History Smoking Status: Former Smoker - CARDIAC Hx Cardiac Disorders: No - PULMONARY Hx Asthma: Yes - NEUROLOGICAL Hx Neurological Disorder: No - HEENT Hx HEENT Problems: No - RENAL Hx Chronic Kidney Disease: No - ENDOCRINE/METABOLIC Hx Endocrine Disorders: No - HEMATOLOGICAL/ONCOLOGICAL Hx Blood Disorders: No - INTEGUMENTARY Hx Dermatological Problems: No - MUSCULOSKELETAL/RHEUMATOLOGICAL Hx Musculoskeletal Disorders: No - GASTROINTESTINAL Hx Gastrointestinal Disorders: No - GENITOURINARY/GYNECOLOGICAL Hx Genitourinary Disorders: No - PSYCHIATRIC Hx Psychophysiologic Disorder: No Hx Substance Use: No - SURGICAL HISTORY Other/Comment: Breast augmentation. Liposuction - ANESTHESIA Hx Anesthesia: Yes Hx Anesthesia Reactions: No Hx Malignant Hyperthermia: No Meds Allergies/Adverse Reactions: Allergies Allergy/AdvReac Type Severity Reaction Status Date / Time pollen extracts Allergy SHORTNESS Verified 07/23/17 08:49 OF BREATH maple Allergy RASH Uncoded 07/23/17 08:49 Physical Exam - Constitutional Appears: Non-toxic - Head Exam Head Exam: ATRAUMATIC, NORMAL INSPECTION, NORMOCEPHALIC - Eye Exam Eye Exam: EOMI, Normal appearance, PERRL. absent: Scleral icterus Pupil Exam: NORMAL ACCOMODATION - ENT Exam ENT Exam: Mucous Membranes Moist - Neck Exam Neck exam: Positive for: Normal Inspection - Respiratory Exam Respiratory Exam: Decreased Breath Sounds, Clear to Auscultation Bilateral, Wheezes. absent: Rales, Rhonchi - Cardiovascular Exam Cardiovascular Exam: REGULAR RHYTHM, +S1, +S2 - GI/Abdominal Exam GI & Abdominal Exam: Normal Bowel Sounds, Soft. absent: Distended, Firm, Guarding - Extremities Exam Extremities exam: Negative for: calf tenderness - Back Exam Back exam: absent: CVA tenderness (L), CVA tenderness (R) - Neurological Exam Neurological exam: Alert, Oriented x3 - Psychiatric Exam Psychiatric exam: Normal Affect, Normal Mood - Skin Skin Exam: Dry, Normal Color Results - Vital Signs Recent Vital Signs: Last Vital Signs Temp 98.1 F 07/23/17 05:14 Pulse 110 H 07/23/17 08:27 Resp 19 07/23/17 08:27 BP 100/56 L 07/23/17 08:27 Pulse Ox 96 07/23/17 08:27 - Labs Result Diagrams: 07/23/17 05:35 07/23/17 05:35 Assessment & Plan - Assessment and Plan (Free Text) Plan: 26 year old female, former smoker, whose past medical history includes asthma and seasonal allergies, comes in for asthma exacerbation - Asthma exacerbation due to recurrent bronchitis - Mild leukocytosis - tachypnea - tachycardia - Hypokalemia, likely from [place]IL[place] Plan - CT-chest non-contrast - unremarkable; CXR - no acute changes - Ceftriaxone 1g daily and Doxy 100q12 - Budesoniade 0.5Q12, Xopenex 0.63 Q4, solumedropl 40q6 - Flonase daily Tessalon 200 TID, - O2 PRN - f/u TSH, Free T4, A1C, Lipid, Vit D - PVX = Lovenox 40q12, protonix, OOB, AE hose - FEN = NA@100, regular diet Discharge planning - plan to home tomorrow Consult Pulm = Dr. Woodruff s/r/d/w Dr. Smith
--- NOTE | 2017-07-23 08:34 | CT ---
PROCEDURE: CT Chest without contrast HISTORY: ASTHMA COMPARISON: None. TECHNIQUE: Contiguous axial images were obtained through the chest without intravenous contrast enhancement. Sagittal and coronal reconstructions were performed. Radiation dose (DLP): 195.12 mGy-cm. This CT exam was performed using one or more of the following dose reduction techniques: Automated exposure control, adjustment of the mA and/or kV according to patient size, and/or use of iterative reconstruction technique. FINDINGS: LUNGS: Clear lungs. Visualized airway clear. MEDIASTINUM: Unremarkable thoracic aorta. No aneurysm. Normal sized heart. Main pulmonary artery unremarkable. No vascular congestion. No lymphadenopathy. PLEURA: No pleural fluid. No pneumothorax. BONES: No fracture. No destructive lesion. UPPER ABDOMEN: Grossly unremarkable. OTHER FINDINGS: Bilateral breast augmentation prostheses are noted. IMPRESSION: Unremarkable non-contrast enhanced CT of the chest.
--- NOTE | 2017-07-23 09:51 | CON ---
DATE: 07/23/2017 PULMONARY CONSULTATION REASON FOR CONSULTATION: Asthma. REFERRING PHYSICIAN: John Smith MD HISTORY OF PRESENT ILLNESS: The patient is a 26-year-old female, with past medical history significant for asthma, allergies, and recurrent bronchitis, who presents to [facility] with a three-day history of worsening shortness of breath at rest, dyspnea on exertion, cough, and sputum production. There is no history of chest pain, coughing up of blood, or chest pain - made worse with deep respirations. There is no history of temperatures, chills. + infectious exposure(son). There is no history of night sweats, weight loss or appetite change prior to the above events. No history of leg or calf pains. No history of syncope or diaphoresis. No history of recent travel or trauma. REVIEW OF SYSTEMS: No history of nausea, vomiting or diarrhea. No acute urinary symptoms. No new neurologic or musculoskeletal complaints. Rest of the review of systems is negative. ALLERGIES: POLLEN EXTRACTS AND MAPLE. SOCIAL HISTORY: Negative for tobacco and negative for alcohol. FAMILY HISTORY: No inheritable diseases. HOME MEDICATIONS: INCLUDE PREDNISONE AND ADVAIR. PHYSICAL EXAMINATION: GENERAL: The patient is mildly short of breath at rest, but in no acute distress. She is not using accessory muscles for breathing. VITAL SIGNS: Temperature is 98.1, pulse is 95, respiratory rate is 20/22, and blood pressure is 107/70. Oxygen saturation on nasal cannula is 96%. HEENT: Normocephalic and atraumatic. NECK: No JVD. CARDIOVASCULAR: Positive S1 and S2. No S3, gallop. LUNGS: Scattered bilateral rhonchi and wheezing are appreciated. EXTREMITIES: No clubbing, cyanosis or edema. Calves are nontender to palpation. GASTROINTESTINAL: Abdomen is soft, nontender and nondistended. Bowel sounds are positive. SKIN: No acute rash. NEUROLOGIC: Exam is limited at the present time. PERTINENT LABORATORY DATA: Chest x-ray was done and reviewed. There are no acute/significant changes noted. Official results are pending. CBC: White count of 14.6, hemoglobin of 13.7, hematocrit of 40.0, and platelets of 327,000K. Arterial blood gas was done-- on what is listed as on room air. Results are: PH of 7.39, pCO2 of 37, and pO2 of 121. Complete metabolic profile: Potassium of 3.2, and glucose of 144. Rest of the metabolic profiles within normal limits. IMPRESSION: 1. Acute bronchitis. 2. Asthma. 3. Allergies. PLAN: The patient presents to [facility] with a three-day history of worsening pulmonary symptoms. She denies temperatures, however, her son is "sick" at home. I did review the chest x-ray as above. The chest x-ray shows no acute change. CAT scan of the chest has been ordered for additional evaluation. I will check that when feasible. On physical exam, the patient is in moderate bronchospasm. I will continue the current nebulizer treatments and intravenous steroids --already ordered. I will also add inhaled Pulmicort this morning. The patient has also been placed on antibiotic therapy. There are no temperatures noted. There is a mild leukocytosis. Blood cultures have been sent. I also discussed the case with the nurse at length. The nurse and the patient confirm--that the patient is feeling much better, and clinically improved - compared to the initial presentation. Additional pulmonary intervention will be based on the above results, as well as the clinical status of the patient. I will discuss the above with Dr. Smith. Thank you very much for this pulmonary consultation. Ru Woodruff MD MTDAllie
[2017-07-23] MEDS ORDERED: cefTRIAXone 2 GM IN NS 2 GM/100 ML BAG IVPB SCH (10:00)
[2017-07-23] MEDS ORDERED: Enoxaparin 40 mg Syringe SC SCH (10:00)
[2017-07-23] MEDS ORDERED: Fluticasone Nasal 50 mcg/Spray NS SCH (10:30)
--- NOTE | 2017-07-23 10:51 | CARD ---
APPROVED REPORT EKG Measurement Heart [id number] <Conclusion> Sinus tachycardia Biatrial enlargement Abnormal ECG
[2017-07-23 10:58] LABS: CHOLESTEROL 130 mg/dL (130-200)
[2017-07-23] MEDS: Sodium Chloride 0.9% 1,000 ML IV SCH ×2 (11:20→21:00)
[2017-07-23 11:26] LABS: FREE T4 1.41 ng/dL (0.78-2.19); T4 9.8 ug/dL (5.5-11.0)
[2017-07-23 11:39] LABS: THYROID STIMULATING HORMONE 0.19 mIU/mL (0.46-4.68)
[2017-07-23 13:39] VITALS: BMI 21.1
[2017-07-23] MEDS ORDERED: Influenza Vaccine 60 mcg/0.5 mL SYR (4YR UP) IM ONE (13:39)
[2017-07-23] MEDS ORDERED: Pneumococcal 23-Valent Vaccine IM ONE (13:39)
[2017-07-23] MEDS: Pantoprazole 40 mg EC Tab PO SCH (16:27)
[2017-07-23] MEDS ORDERED: Ergocalciferol 50,000 Intl Units Cap PO SCH (19:30)
[2017-07-23] MEDS: Budesonide 0.5 mg/2 ml Inhal Susp UD IH SCH (20:25)
--- NOTE | 2017-07-23 21:41 | HP ---
HISTORY OF PRESENT ILLNESS: The patient is a 26-year-old female who presented to the [facility] Emergency Room around 5 o'clock this morning. According to the patient, the patient came via the [facility] BLS ambulance. The patient stated that she started having severe wheezing and asthma attack despite her nebulizer medications, which she takes at home. The patient came by the ALS for asthma exacerbation. In the field the patient received 2 g of magnesium sulfate IV, Solu-Medrol 125, two of the DuoNeb nebulizers was given in the field. The patient received 4 albuterol at home. The patient also had cough. When the patient was evaluated by the ER physician, Dr. Connell, the patient stated that she is complaining of shortness of breath, wheezing, and cough. The patient stated that the patient was recently started on Advair Diskus in addition to nebulizer and Ventolin inhaler, but the patient's symptoms got worse at 4 o'clock this morning. REVIEW OF SYMPTOMS: A 13-system review was done, pertinent positive and negative dictated above. CODE STATUS: Full code. LIVING WILL ADVANCE DIRECTIVE: None. HEIGHT: 5 feet 5 inches. WEIGHT: 127. BMI: 21. PAST MEDICAL/SURGICAL HISTORY: History of asthma since the age of 14, history of breast augmentation, history of liposuction in [place], history of former smoker, and history of social alcohol use. The patient's past medical history is significant for multiple ER visits for asthma and asthma exacerbation. No hospitalization was noted, most of them are ER visits. ALLERGIES: POLLEN EXTRACT AND MAPLE. HOME MEDICATIONS. The patient is on prednisone 20 mg and 40 mg daily, Advair inhaler 230/21 twice a day, albuterol inhaler and albuterol nebulizer treatment. SOCIAL HISTORY: Positive for social alcohol use. Former smoker. OCCUPATIONAL: The patient works for [employer] in [employer] in [place]. 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 MENSTRUAL HISTORY: The patient denies being and denies being on control. SEXUAL HISTORY: The patient denies any high risk sexual behavior. Denies any communicable transmissible diseases. FAMILY HISTORY: The patient denied any family history in the family. HOME MEDICATIONS: Reviewed. 1. Prednisone 40 mg and 20 mg daily. 2. Advair Diskus. PHYSICAL EXAMINATION: GENERAL: The patient is seen lying in the bed in room 373, bed 2. VITAL SIGNS: T-max is 98.5, heart rate 110, 149 in the ER. Heart rate is initially 149 down to 110, blood pressure 107/70, 100/56, respirations 30, 24, 19, and O2 saturation 96% on nasal cannula and face mask. HEAD: Normocephalic and atraumatic. HEENT: Examination shows questionable sinus tenderness, questionable pharyngeal edema, and questionable submandibular lymphadenopathy. No neck rigidity. CHEST: Kyphosis. LUNGS: Diffuse rhonchi, wheezing bilaterally, inspiratory and expiratory wheezing, anterior-posterior bilaterally. CARDIOVASCULAR: S1 and S2, tachycardic rhythm. Positive stigmata of breast augmentation noted. DIAGNOSTIC STUDIES: WBC 14.6, hemoglobin/hematocrit 13.7/40.0, and platelet 327. Room air ABG pH of 7.39, pCO2 37, pO2 121, bicarbonate of 22, saturation of 99% on 21% FiO2. Sodium 141, potassium 3.2, chloride 107, CO2 22, anion gap 15, BUN 14, creatinine 0.8, GFR greater than 60, and glucose 144. LFTs are normal. Beta HCG is negative. Urine HCG is negative. The patient had a chest x-ray and CT of the chest was done for evaluation of the patient's persistent wheezing despite multiple nebulizer treatments, steroid treatment, and magnesium sulfate treatment. In the Emergency Room, CT of the chest was done, which shows no pneumonia, bilateral breast augmentation prosthesis. The patient's chest x-ray was initially done in the Emergency Room, which was also negative. EKG done in the Emergency Room was also reviewed, which shows sinus tachycardia, biatrial enlargement. The patient was seen in the Emergency Room by Dr. Connell. The patient despite multiple nebulizer treatments, magnesium sulfate, and IV steroid therapy, the patient was continues to wheeze and the patient was advised to be hospitalized. IMPRESSION AND PLAN: 1. Acute exacerbation of bronchial asthma with refractory wheezing, rhonchi, and bronchospasm. 2. Possible early status asthmaticus. 3. Acute exacerbation of asthma. 4. Tachycardia. 5. Hypotension. 6. Tachypnea. 7. Leukocytosis. 8. Hypokalemia. 9. Hyperglycemia. 10. Status post bilateral breast augmentation and liposuction. 11. History of longstanding asthma. 12. Pollen and maple allergies. PLAN: At this time, the patient has been ordered hospitalization by the ER physician because of refractory asthma. The patient has been ordered repeat labs for the morning. The patient has been ordered Pulmonary consultation. Blood cultures were done in the ER. The patient is started on broad-spectrum IV antibiotic with doxycycline 100 mg IV q. 12 hours. The patient is started on Flonase nasal spray by Pulmonary. The patient was given potassium supplementation. The patient is on DVT prophylaxis with Lovenox 40 mg subcutaneous daily. Cefepime was given 2 g IV in the ER. The patient is started on Protonix 40 mg daily. The patient is started on Pulmicort nebulizer 0.5 mg q. 12 hours. The patient is started on Rocephin 1 g IV daily with doxycycline 100 mg IV q. 12 hours. The patient is started on IV fluid 0.9 at 100 mL an hour, Solu-Medrol 40 mg IV q. 6 hours, Tessalon Perles 200 t.i.d., Xopenex nebulizer 0.63 mg nebulizer every 4 hours schedule has been ordered. The patient has been ordered oxygen 2 liters, regular diet, out of bed. The patient has been ordered repeat CBC, CMP, LFT, magnesium, vitamin D, thyroid function, lipid panel, hemoglobin A1c was ordered for evaluation of hyperglycemia and leukocytosis. At present, the patient was seen and evaluated. The patient was advised hospitalization and further treatment and inpatient management, which she acknowledged understand. All questions concerned answered to the patient's satisfaction. The patient initially wanted to be discharged, but the patient was advised that because of her medical condition and acute exacerbation of asthma, the patient should be hospitalized for further management and treatment, which she acknowledged to understand. Dictated and electronically signed, not read. Signing off, John Smith MD
[2017-07-24 00:29] VITALS: RESP 18
[2017-07-24] MEDS: Levalbuterol 0.63 MG/3 ML Inhal Soln UD IH SCH ×3 (00:30→08:01)
[2017-07-24] MEDS: Pantoprazole 40 mg EC Tab PO SCH (05:36)
[2017-07-24] MEDS: MethylPREDNISolone 40 mg Vial IVP SCH (05:37)
[2017-07-24 05:59] VITALS: BP 99/60; PULSE 71; TEMP 97.9; O2SAT 98
[2017-07-24 07:25] LABS: ALB/GLOB RATIO 1.2 (1.1-1.8); ALKALINE PHOSPHATASE 68 U/L (38-126); ALT/SGPT 30 U/L (7-56); AST/SGOT 23 U/L (14-36); BILIRUBIN,DIRECT 0.4 mg/dL (0.0-0.4); BILIRUBIN,TOTAL 0.5 mg/dL (0.2-1.3); BLOOD UREA NITROGEN 11 mg/dL (7-21); CALCIUM 9.1 mg/dL (8.4-10.5); CARBON DIOXIDE 25 mmol/L (21-33); CHLORIDE 107 mmol/L (98-107); GFR AFRICAN-AMERICAN > 60; GLUCOSE,RANDOM 116 mg/dL (70-110); MAGNESIUM 1.9 mg/dL (1.7-2.2); POTASSIUM 4.3 mmol/L (3.6-5.0); SODIUM 141 mmol/L (132-148); TOTAL PROTEIN 7.3 g/dL (5.8-8.3)
[2017-07-24 07:54] LABS: BASO # 0.01 K/mm3 (0.0-2.0); GRAN # 17.8 (1.4-6.5); GRAN % 85.6 % (50.0-68.0); HEMATOCRIT 39.7 % (36.0-48.0); LYMPH # 1.8 (1.2-3.4); LYMPH % 8.7 % (22.0-35.0); MEAN CORPUSCULAR HEMOGLOBIN 29.5 pg (25.0-35.0); MEAN CORPUSCULAR HGB CONC 33.5 g/dl (31.0-37.0); MEAN PLATELET VOLUME 10.3 fl (7.0-11.0); MONO # 1.2 (0.1-0.6); MONO % 5.7 % (1.0-6.0); RED CELL DISTRIBUTION WIDTH 12.5 % (11.5-14.5); WHITE BLOOD COUNT 20.8 10^3/ul (4.5-11.0)
[2017-07-24] MEDS: Budesonide 0.5 mg/2 ml Inhal Susp UD IH SCH (08:01)
[2017-07-24] MEDS ORDERED: cefTRIAXone 1 gm 1 GM/100 ML BAG IVPB SCH (10:00)
[2017-07-24] MEDS ORDERED: MethylPREDNISolone 40 mg Vial IVP SCH (10:00)
--- NOTE | 2017-07-24 10:54 | CP.PCM.DIS ---
Provider - Provider Date of Admission: 07/23/17 07:04 Attending physician: John Smith MD Primary care physician: Cintia Chatman MD Consults: Dr. Woodruff Warehouse Man Time Spent in preparation of Discharge (in minutes): 30 Diagnosis - Discharge Diagnosis (1) Bronchitis Status: Acute (2) Status asthmaticus Status: Acute Hospital Course - Lab Results Lab Results: Micro Results 07/23/17 07:10 Blood Blood Culture - Preliminary NO GROWTH AFTER 24 HOURS 07/23/17 07:40 Blood Blood Culture - Preliminary NO GROWTH AFTER 24 HOURS Most Recent Lab Values WBC 20.8 10^3/ul (4.5-11.0) H D 07/24/17 06:30 RBC 4.51 10^6/uL (3.5-6.1) 07/24/17 06:30 Hgb 13.3 g/dL (12.0-16.0) 07/24/17 06:30 Hct 39.7 % (36.0-48.0) 07/24/17 06:30 MCV 88.0 fl (80.0-105.0) 07/24/17 06:30 MCH 29.5 pg (25.0-35.0) 07/24/17 06:30 MCHC 33.5 g/dl (31.0-37.0) 07/24/17 06:30 RDW 12.5 % (11.5-14.5) 07/24/17 06:30 Plt Count 341 10^3/uL (120.0-450.0) 07/24/17 06:30 MPV 10.3 fl (7.0-11.0) 07/24/17 06:30 Gran % 85.6 % (50.0-68.0) H 07/24/17 06:30 Lymph % (Auto) 8.7 % (22.0-35.0) L 07/24/17 06:30 [place] % (Auto) 5.7 % (1.0-6.0) 07/24/17 06:30 Eos % (Auto) 0.0 % (1.5-5.0) L 07/24/17 06:30 Baso % (Auto) 0.0 % (0.0-3.0) 07/24/17 06:30 Gran # 17.80 (1.4-6.5) H 07/24/17 06:30 Lymph # 1.8 (1.2-3.4) 07/24/17 06:30 [place] # 1.2 (0.1-0.6) H 07/24/17 06:30 Eos # 0.0 (0.0-0.7) 07/24/17 06:30 Baso # 0.01 K/mm3 (0.0-2.0) 07/24/17 06:30 pCO2 37 mm/Hg (35-45) 07/23/17 06:35 pO2 121.0 mm/Hg (80-100) H 07/23/17 06:35 HCO3 22.4 mmol/L (21-28) 07/23/17 06:35 ABG pH 7.39 (7.35-7.45) 07/23/17 06:35 ABG Total CO2 23.5 mmol.L (22-28) 07/23/17 06:35 ABG O2 Saturation 99.7 % (95-98) H 07/23/17 06:35 ABG O2 Content 17.5 ML/dl (15-23) 07/23/17 06:35 ABG Base Excess -2.2 mmol/L (-2.0-3.0) L 07/23/17 06:35 ABG Hemoglobin 12.7 g/dL (11.7-17.4) 07/23/17 06:35 ABG Carboxyhemoglobin 1.8 % (0.5-1.5) H 07/23/17 06:35 POC ABG HHb (Measured) 0.3 % (0-5) 07/23/17 06:35 ABG Methemoglobin 1.0 % (0.0-3.0) 07/23/17 06:35 ABG O2 Capacity 17.6 mL/dl (16-24) 07/23/17 06:35 Hgb O2 Saturation 97.0 % (95.0-98.0) 07/23/17 06:35 FiO2 21.0 % 07/23/17 06:35 Sodium 141 mmol/L (132-148) 07/24/17 06:30 Potassium 4.3 mmol/L (3.6-5.0) 07/24/17 06:30 Chloride 107 mmol/L (98-107) 07/24/17 06:30 Carbon Dioxide 25 mmol/L (21-33) 07/24/17 06:30 Anion Gap 13 (10-20) 07/24/17 06:30 BUN 11 mg/dL (7-21) 07/24/17 06:30 Creatinine 0.8 mg/dl (0.7-1.2) 07/24/17 06:30 Est GFR ( Amer) > 60 07/24/17 06:30 Est GFR (Non-Af Amer) > 60 07/24/17 06:30 Random Glucose 116 mg/dL (70-110) H 07/24/17 06:30 Hemoglobin A1c 5.3 % (4.2-6.5) 07/23/17 10:40 Calcium 9.1 mg/dL (8.4-10.5) 07/24/17 06:30 Magnesium 1.9 mg/dL (1.7-2.2) 07/24/17 06:30 Total Bilirubin 0.5 mg/dL (0.2-1.3) 07/24/17 06:30 Direct Bilirubin 0.4 mg/dL (0.0-0.4) 07/24/17 06:30 AST 23 U/L (14-36) 07/24/17 06:30 ALT 30 U/L (7-56) 07/24/17 06:30 Alkaline Phosphatase 68 U/L (38-126) 07/24/17 06:30 Total Protein 7.3 g/dL (5.8-8.3) 07/24/17 06:30 Albumin 3.9 g/dL (3.0-4.8) 07/24/17 06:30 Globulin 3.4 gm/dL 07/24/17 06:30 Albumin/Globulin Ratio 1.2 (1.1-1.8) 07/24/17 06:30 Triglycerides 40 mg/dL (35-160) 07/23/17 10:40 Cholesterol 130 mg/dL (130-200) 07/23/17 10:40 LDL Cholesterol Direct 65 mg/dL (0-129) 07/23/17 10:40 HDL Cholesterol 49 mg/dL (29-60) 07/23/17 10:40 25-OH Vitamin D Total 24.2 NG/ML (30.0-100.0) L 07/23/17 10:40 Free T4 1.41 ng/dL (0.78-2.19) 07/23/17 10:40 Thyroxine (T4) 9.8 ug/dL (5.5-11.0) 07/23/17 10:40 TSH 3rd Generation 0.19 mIU/mL (0.46-4.68) L 07/23/17 10:40 Beta HCG, Quant < 2.39 mIU/mL (0-6.15) 07/23/17 07:40 Urine HCG, Qual Negative (NEGATIVE) 07/23/17 08:06 - Hospital Course Hospital Course: Laura Phipps is a 26 year old female, former smoker, whose past medical history includes asthma, recurrent bronchitis, and seasonal allergies, c/o EMS complaining of shortness of breath, wheezing, and cough tonight. At baseline pt uses albuterol 2-3 times a week, mostly for exercise induced asthma. Starting 1 week ago, Pt had coughs with white phlgems, worsed at night, increased albuterol uses to 3 times a day with nebulizaers treatment. Breathing was worse x 3d, and pt came to ED for SOB, wheezez, worsening cough. In the field, Patient received multiple nebulizer treatments, magnesium sulfate, and IV Solu- medrol in the field. (+) sick contact, son, similar symptoms.(+) change in meds , increased in Advair dosesage but hasnt started using it yet. Denies travel. No home O2, never intubated. CT-chest non-contrast was unremarkable; CXR showed no acute changes. During the hospital stay, she was treated for the following: respiratory distress, Asthma exacerbation due to recurrent bronchitis, Mild leukocytosis, tachypnea , tachycardia, Hypokalemia, likely from GUILLE. Electrolyte repleted. SHe was started with Ceftriaxone 1g daily and Doxy 100q12. She has Budesoniade 0.5Q12, Xopenex 0.63 Q4, solumedropl 40q6, Flonase daily Tessalon 200 TID, O2 PRN. Pending result TSH, Free T4, A1C, Lipid, Vit D. She had DVT and GI PVX as Lovenox 40q12, protonix, OOB, AE hose. She was maintained on NS@100, regular diet. This morning, pt signed out AMA due to court appointment. Pt states that she will call Dr. Smith tomorrow to follow up and will go to emergency room if condition deteriorates. Discharge Exam - Head Exam Head Exam: ATRAUMATIC, NORMAL INSPECTION, NORMOCEPHALIC - Eye Exam Eye Exam: EOMI, Normal appearance, PERRL. absent: Scleral icterus Pupil Exam: NORMAL ACCOMODATION - Respiratory Exam Respiratory Exam: Rhonchi, Wheezes. absent: Respiratory Distress - Cardiovascular Exam Cardiovascular Exam: REGULAR RHYTHM, +S1, +S2 - Extremities Exam Additional comments: no calf tenderness b/l - Neurological Exam Neurological exam: Alert, Normal Gait, Oriented x3 - Psychiatric Exam Psychiatric exam: Anxious, Normal Affect, Normal Mood - Skin Skin Exam: Dry, Warm Discharge Plan - Discharge Medications Prescriptions: Benzonatate [Tessalon Perles] 200 mg PO TID #30 sgl Budesonide [Pulmicort Respules] 0.5 mg IH [id number] #30 neb Doxycycline Hyclate 100 mg PO BID #14 cap Ergocalciferol [Drisdol 50,000 Intl Units Cap] 1 cap PO Q7D #7 cap Fluticasone Nasal [Flonase] 1 actuation NS DAILY #1 spr Pantoprazole [Protonix EC Tab] 40 mg PO 0600,1600 #30 ect predniSONE [Prednisone] 10 mg PO DAILY #100 tab - Follow Up Plan Condition: STABLE Disposition: AGAINST MEDICAL ADVICE Additional Instructions: DISCHARGE HOME ONLY AFTER CLEARED BY PULMONARY FOLLOW UP WITHIN 1-2 WEEK DISCHARGE MEDS PER UPDATED AMBULATORY ORDERS PLUS NEW SCRIPTS Referrals: John Smith MD [Staff Provider] - 2 Week (DISCHARGE HOME ONLY AFTER CLEARED BY PULMONARY FOLLOW UP WITHIN 1-2 WEEK DISCHARGE MEDS PER UPDATED AMBULATORY ORDERS PLUS NEW SCRIPTS )
--- NOTE | 2017-07-24 13:06 | PN ---
DATE: 07/24/2017 PULMONARY NOTE SUBJECTIVE: The patient appears very comfortable at rest. She is not short of breath. OBJECTIVE: VITAL SIGNS: Temperature is 97.9, pulse 64, respirations 18, blood pressure 99/60. Oxygen saturation on room air is 98%. HEENT: Normocephalic, atraumatic. NECK: No JVD. CARDIOVASCULAR: Positive S1, S2. No S3 gallop. LUNGS: Much less rhonchi. Much less wheezing. EXTREMITIES: No clubbing, cyanosis, or edema. Calves are nontender to palpation. GI: Abdomen is soft, nontender, and nondistended. Bowel sounds are positive. SKIN: No acute rash. NEUROLOGIC: Limited at the present time. PERTINENT LABORATORY DATA: CT scan of the chest was done yesterday and reviewed. Lungs are clear. The CT scan of the chest is unremarkable. IMPRESSION: 1. Acute bronchitis. 2. Asthma. 3. Allergies. PLAN: The patient appears very comfortable this morning. She is not short of breath at rest. Her cough is much less. She does state to feeling much, much better overall. On physical exam, her bronchospasm is significantly less. In addition, the oxygen saturation on room air is now 98%. I will continue the current nebulizer treatments and decrease the intravenous steroids this morning. The patient remains on antibiotic therapy. CT scan of the chest is noted above. Clinical status of the patient is significantly improved - compared to the initial presentation. The patient is advised to be out of bed and increase her activity as tolerated. I will discuss the above with Dr. Smith. Ru Woodruff MD MTDD
== END 2017-07-24 09:55 | disposition left against medical advice (07) ==
LOC: ED 05:08 → ERH 07:04 → 3RSO 09:02
PROVIDERS: ADMIT Internal Medicine; ATTEND Internal Medicine
DX: J45.902 Unspecified asthma with status asthmaticus (principal); J20.9 Acute bronchitis, unspecified; E87.6 Hypokalemia; Z87.891 Personal history of nicotine dependence; Z80.49 Family history of malignant neoplasm of other genital organs; Z91.018 Allergy to other foods; Z91.048 Other nonmedicinal substance allergy status; R40.2412 Glasgow coma scale score 13-15, at arrival to emergency department; M40.204 Unspecified kyphosis, thoracic region; R73.9 Hyperglycemia, unspecified; I95.9 Hypotension, unspecified; R00.0 Tachycardia, unspecified; R06.82 Tachypnea, not elsewhere classified
CPT/HCPCS: 36415; 71010; 71250; 80053; 80061; 82248; 82306; 82803; 83036; 83735; 84439; 84443; 84702; 84703; 85025; 85027; 87040; 93005; 94640; 96361; 96365; 96366; 96367; 96372; 96375; 96376; 99285; G0378; J0692; J1650; J2920; J7040

== ENCOUNTER 2017-08-27 23:29 | Emergency (ER) | payer OTHER ==
[2017-08-27 23:31] VITALS: BMI 21.1
[2017-08-28] MEDS ORDERED: Albuterol-Ipratrop 3 mg / 0.5 (3 ml) UD IH STA (00:09)
--- NOTE | 2017-08-28 00:24 | ED PDOC ---
Arrival/HPI - General Chief Complaint: Shortness Of Breath Time Seen by Provider: 08/28/17 00:07 Historian: Patient - History of Present Illness Narrative History of Present Illness (Text): 08/28/17 00:19 26 year old female, whose past medical history includes asthma and seasonal allergies, presents to the Emergency department via EMS for evaluation of asthma exacerbation and progressing shortness of breath attributing to allergies and cold weather for past couple days worsening tonight. Patient informs receiving multiple nebulizer treatments, magnesium sulfate and IV solumedrol en route and is currently states feeling much better. Patient states associated nasal congestion. Patient denies any fever, chills, cough, chest pain, abdominal pain, nausea, vomiting, diarrhea or any other complaints. Time/Duration: < week Symptom Course: Unchanged Activities at Onset: Light Context: Home Past Medical History - Provider Review Nursing Documentation Reviewed: Yes - Infectious Disease Hx of Infectious Diseases: None - Cardiac Hx Cardiac Disorders: No - Pulmonary Hx Respiratory Disorders: Yes (SMOKED HOOKAH BEFORE H/O.QUIT LAST YR.) Hx Asthma: Yes - Neurological Hx Neurological Disorder: No - HEENT Hx HEENT Disorder: No - Renal Hx Renal Disorder: No - Endocrine/Metabolic Hx Endocrine Disorders: No - Hematological/Oncological Hx Blood Disorders: No - Integumentary Hx Dermatological Disorder: No - Musculoskeletal/Rheumatological Hx Musculoskeletal Disorders: No Hx Falls: No - Gastrointestinal Hx Gastrointestinal Disorders: No - Genitourinary/Gynecological Hx Genitourinary Disorders: Yes (BREAST AUGMENTATION.LIPOSUCTION.FAT TRANSFER) - Psychiatric Hx Psychophysiologic Disorder: No Hx Substance Use: No - Surgical History Other/Comment: Breast augmentation. Liposuction. FAT TRANSFER - Anesthesia Hx Anesthesia: Yes Hx Anesthesia Reactions: No Hx Malignant Hyperthermia: No Family/Social History - Physician Review Nursing Documentation Reviewed: Yes Family/Social History: No Known Family HX Smoking Status: Former Smoker Hx Alcohol Use: Yes (OCCASIONALM WINE) Hx Substance Use: No Allergies/Home Meds Allergies/Adverse Reactions: Allergies pollen extracts Allergy (Verified 07/23/17 11:43) SHORTNESS OF BREATH maple Allergy (Uncoded 07/23/17 11:43) RASH Review of Systems - Physician Review All systems were reviewed & negative as marked: Yes - Review of Systems Constitutional: Normal. absent: Fevers Eyes: Normal ENT: Normal Respiratory: SOB, Cough Cardiovascular: Normal. absent: Chest Pain Gastrointestinal: Normal. absent: Abdominal Pain, Diarrhea, Nausea, Vomiting Genitourinary Female: Normal Musculoskeletal: Normal Skin: Normal Neurological: Normal Endocrine: Normal Hemo/Lymphatic: Normal Psychiatric: Normal Physical Exam - Systems Exam Head: Present: Atraumatic, Normocephalic Pupils: Present: PERRL Extroacular Muscles: Present: EOMI Conjunctiva: Present: Normal Mouth: Present: Moist Mucous Membranes Neck: Present: Normal Range of Motion Respiratory/Chest: Present: Good Air Exchange, Wheezes (Mild end expiratory wheeze). No: Respiratory Distress, Accessory Muscle Use Cardiovascular: Present: Regular Rate and Rhythm, Normal S1, S2. No: Murmurs Abdomen: Present: Normal Bowel Sounds. No: Tenderness, Distention, Peritoneal Signs Back: Present: Normal Inspection Upper Extremity: Present: Normal Inspection. No: Cyanosis, Edema Lower Extremity: Present: Normal Inspection. No: Edema Neurological: Present: GCS=15, CN II-XII Intact, Speech Normal Skin: Present: Warm, Dry, Normal Color. No: Rashes Psychiatric: Present: Alert, Oriented x 3, Normal Insight, Normal Concentration Medical Decision Making ED Course and Treatment: 08/28/17 00:25 Impression: 26 year old female presents to the Emergency department for asthma exacerbation. Differential Diagnosis included but are not limited to: asthma exacerbation Plan: -- Albuterol -- Reassess and disposition Progress Notes: - Medication Orders Current Medication Orders: Discontinued Medications Albuterol/Ipratropium (Duoneb 3 Mg/0.5 Mg (3 Ml) Ud) 3 ml IH ONCE STA Stop: 08/28/17 00:10 Last Admin: 08/28/17 00:14 Dose: 3 ml - Scribe Statement The provider has reviewed the documentation as recorded by the Scribe Maria L Giron. All medical record entries made by the Juneibe were at my direction and personally dictated by me. I have reviewed the chart and agree that the record accurately reflects my personal performance of the history, physical exam, medical decision making, and the department course for this patient. I have also personally directed, reviewed, and agree with the discharge instructions and disposition. Disposition/Present on Arrival - Present on Arrival Any Indicators Present on Arrival: No History of DVT/PE: No History of Uncontrolled Diabetes: No Urinary Catheter: No History of Decub. Ulcer: No History Surgical Site Infection Following: None - Disposition Have Diagnosis and Disposition been Completed?: Yes Diagnosis: Asthma exacerbation, URI (upper respiratory infection) Disposition: HOME/ ROUTINE Disposition Time: 01:10 Patient Plan: Discharge Condition: GOOD Discharge Instructions (ExitCare): Asthma (ED), Allergies (ED), Cold Symptoms ( ED) Additional Instructions: Take meds as prescribed/follow up with your doctor this week Prescriptions: Fexofenadine/Pseudoephedrine [Sarah-D 12 Hour Tablet] 1 each PO BID PRN #24 tab.er.12h PRN Reason: Nasal Congestion predniSONE [Prednisone] 40 mg PO DAILY #10 tab Albuterol HFA [Ventolin HFA 90 mcg/actuation (8 g)] 2 puff IH [id number] PRN #1 puff PRN Reason: Wheezing Forms: [facility] ([place]ese)
[2017-08-28 03:17] VITALS: O2SAT 100
[2017-08-28 03:19] VITALS: RESP 16
[2017-08-28 03:20] VITALS: PULSE 80; TEMP 98.6
[2017-08-28 04:12] VITALS: BP 120/87
== END 2017-08-28 03:00 | disposition home or self-care (01) ==
LOC: ED 23:29
DX: J45.901 Unspecified asthma with (acute) exacerbation (principal); J06.9 Acute upper respiratory infection, unspecified; Z87.891 Personal history of nicotine dependence

== ENCOUNTER 2017-09-02 22:20 | Emergency (ER) | payer OTHER ==
[2017-09-02 22:24] VITALS: BMI 21.2
[2017-09-02] MEDS ORDERED: Albuterol-Ipratrop 3 mg / 0.5 (3 ml) UD ONE (22:25)
[2017-09-02] MEDS ORDERED: Levalbuterol 1.25 MG/3 ML Inhal Soln UD IH STA ×3 (22:30→22:56)
[2017-09-02] MEDS ORDERED: Albuterol-Ipratrop 3 mg / 0.5 (3 ml) UD IH STA (22:31)
[2017-09-02 22:59] LABS: BASO # 0.02 K/mm3 (0.0-2.0); BASO % 0.2 % (0.0-3.0); EOS # 0.8 (0.0-0.7); GRAN # 7.1 (1.4-6.5); GRAN % 54.4 % (50.0-68.0); LYMPH # 4.3 (1.2-3.4); LYMPH % 32.9 % (22.0-35.0); MEAN CELL VOLUME 86.9 fl (80.0-105.0); MEAN CORPUSCULAR HEMOGLOBIN 29.6 pg (25.0-35.0); MEAN CORPUSCULAR HGB CONC 34.1 g/dl (31.0-37.0); MONO # 0.8 (0.1-0.6); MONO % 6.5 % (1.0-6.0); RBC 4.73 10^6/uL (3.5-6.1)
[2017-09-02 23:01] LABS: ALB/GLOB RATIO 1.3 (1.1-1.8); ALBUMIN 4.2 g/dL (3.0-4.8); ALT/SGPT 33 U/L (7-56); AST/SGOT 24 U/L (14-36); BLOOD UREA NITROGEN 15 mg/dL (7-21); CALCIUM 8.9 mg/dL (8.4-10.5); GFR AFRICAN-AMERICAN > 60; GFR NON-AFRICAN AMERICAN > 60
[2017-09-02 23:47] VITALS: TEMP 98.2
[2017-09-03] MEDS ORDERED: Sodium Chloride 0.9% 1,000 ML IV STA (00:10)
--- NOTE | 2017-09-03 01:10 | ED PDOC ---
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 Patient states she used her inhaler without relieve. States these symptoms are typical of her Asthma exacerbation. She notes history of hospitalization secondary to the Asthma. She is not steroid dependent. Never intubated. She denies fever, chills, SOB, diaphoresis, LE edema, calf pain, sick contact. Past Medical History - Provider Review Nursing Documentation Reviewed: Yes - Infectious Disease Hx of Infectious Diseases: None - Cardiac Hx Cardiac Disorders: No - Pulmonary Hx Respiratory Disorders: Yes (SMOKED HOOKAH BEFORE H/O.QUIT LAST YR.) Hx Asthma: Yes - Neurological Hx Neurological Disorder: No - HEENT Hx HEENT Disorder: No - Renal Hx Renal Disorder: No - Endocrine/Metabolic Hx Endocrine Disorders: No - Hematological/Oncological Hx Blood Disorders: No - Integumentary Hx Dermatological Disorder: No - Musculoskeletal/Rheumatological Hx Musculoskeletal Disorders: No Hx Falls: No - Gastrointestinal Hx Gastrointestinal Disorders: No - Genitourinary/Gynecological Hx Genitourinary Disorders: Yes (BREAST AUGMENTATION.LIPOSUCTION.FAT TRANSFER) - Psychiatric Hx Psychophysiologic Disorder: No Hx Substance Use: No - Surgical History Other/Comment: Breast augmentation. Liposuction. FAT TRANSFER - Anesthesia Hx Anesthesia: Yes Hx Anesthesia Reactions: No Hx Malignant Hyperthermia: No Family/Social History - Physician Review Nursing Documentation Reviewed: Yes Family/Social History: Unknown Family HX Smoking Status: Former Smoker Hx Alcohol Use: Yes (OCCASIONALM WINE) Hx Substance Use: No Allergies/Home Meds Allergies/Adverse Reactions: Allergies pollen extracts Allergy (Verified 07/23/17 11:43) SHORTNESS OF BREATH maple Allergy (Uncoded 07/23/17 11:43) RASH Review of Systems - Physician Review All systems were reviewed & negative as marked: Yes - Review of Systems Constitutional: Normal Eyes: Normal ENT: Normal Respiratory: SOB, Cough, Wheezing. absent: Sputum Cardiovascular: Normal Gastrointestinal: Normal Genitourinary Female: Normal Musculoskeletal: Normal Skin: Normal Neurological: Normal Endocrine: Normal Hemo/Lymphatic: Normal Psychiatric: Normal Physical Exam Vital Signs Reviewed: Yes Vital Signs Temp Pulse Resp BP Pulse Ox 09/03/17 02:19 100 09/03/17 01:00 98 H 18 98/88 L 100 09/02/17 23:47 98.2 F 09/02/17 22:45 20 98 09/02/17 22:20 126 H 28 H 129/72 99 Temperature: Afebrile Blood Pressure: Normal Pulse: Tachycardic Respiratory Rate: Tachypneic Appearance: Positive for: Well-Appearing, Non-Toxic, Comfortable Pain Distress: Mild Mental Status: Positive for: Alert and Oriented X 3 - Systems Exam Head: Present: Atraumatic, Normocephalic Pupils: Present: PERRL Extroacular Muscles: Present: EOMI Conjunctiva: Present: Normal Mouth: Present: Moist Mucous Membranes Neck: Present: Normal Range of Motion Respiratory/Chest: Present: Good Air Exchange, Accessory Muscle Use, Wheezes. No: Respiratory Distress, Decreased Breath Sounds, Rales, Retracting, Rhonchi Cardiovascular: Present: Regular Rate and Rhythm, Normal S1, S2. No: Murmurs Abdomen: Present: Normal Bowel Sounds. No: Tenderness, Distention, Peritoneal Signs Back: Present: Normal Inspection Upper Extremity: Present: Normal Inspection. No: Cyanosis, Edema Lower Extremity: Present: Normal Inspection. No: Edema Neurological: Present: GCS=15, CN II-XII Intact, Speech Normal Skin: Present: Warm, Dry, Normal Color. No: Rashes Psychiatric: Present: Alert, Oriented x 3, Normal Insight, Normal Concentration Medical Decision Making ED Course and Treatment: 09/03/17 02:28 PT presented for stated history. On re evaluation s/p treatment and hydration, pt's Lunge was CTA b/l. Seh was talking in full sentence withotut distress. Ambulating without distress. She was DC home with Prednisone 50mg rx. Advised to continue her inhaler as needed. referred to her PMD. - Lab Interpretations Lab Results: 09/02/17 22:47 09/02/17 22:47 Lab Results 09/02/17 22:47: Sodium 139, Potassium 3.5 L, Chloride 103, Carbon Dioxide 24, Anion Gap 15, BUN 15, Creatinine 0.8, Est GFR ( Amer) > 60, Est GFR (Non- Af Amer) > 60, Random Glucose 105, Calcium 8.9, Total Bilirubin 0.6, AST 24, ALT 33, Alkaline Phosphatase 78, Total Protein 7.5, Albumin 4.2, Globulin 3.3, Albumin/Globulin Ratio 1.3 09/02/17 22:47: WBC 13.0 H D, RBC 4.73, Hgb 14.0, Hct 41.1, MCV 86.9, MCH 29.6, MCHC 34.1, RDW 12.0, Plt Count 297, MPV 10.0, Gran % 54.4, Lymph % (Auto) 32.9, Sterling % (Auto) 6.5 H, Eos % (Auto) 6.0 H, Baso % (Auto) 0.2, Gran # 7.10 H, Lymph # 4.3 H, Sterling # 0.8 H, Eos # 0.8 H, Baso # 0.02 - Medication Orders Current Medication Orders: Discontinued Medications Albuterol/Ipratropium (Duoneb 3 Mg/0.5 Mg (3 Ml) Ud) 3 ml IH STAT STA Stop: 09/02/17 22:32 Last Admin: 09/02/17 22:31 Dose: 3 ml Sodium Chloride (Sodium Chloride 0.9%) 1,000 mls @ 999 mls/hr IV .Q1H1M STA Stop: 09/03/17 01:10 Last Admin: 09/03/17 00:15 Dose: 999 mls/hr eMAR Start Stop Document 09/03/17 00:15 AD (Rec: 09/03/17 00:54 AD [id number]) Intravenous Solution Start Date 09/03/17 Start Time 00:15 Levalbuterol HCl (Xopenex) 1.25 mg IH STAT STA Stop: 09/02/17 22:31 Last Admin: 09/02/17 22:52 Dose: 1.25 mg Levalbuterol HCl (Xopenex) 1.25 mg IH STAT STA Stop: 09/02/17 22:57 Last Admin: 09/02/17 23:00 Dose: 1.25 mg Levalbuterol HCl (Xopenex) 1.25 mg IH STAT STA Stop: 09/02/17 22:57 Last Admin: 09/02/17 23:15 Dose: 1.25 mg Methylprednisolone (Solu-Medrol) 125 mg IVP STAT STA Stop: 09/02/17 22:31 Last Admin: 09/02/17 22:31 Dose: 125 mg IVP Administration Document 09/02/17 22:31 AD (Rec: 09/02/17 22:52 AD [id number]) Charges for Administration # of IVP Administrations 1 Disposition/Present on Arrival - Present on Arrival Any Indicators Present on Arrival: No History of DVT/PE: No History of Uncontrolled Diabetes: No Urinary Catheter: No History of Decub. Ulcer: No History Surgical Site Infection Following: None - Disposition Have Diagnosis and Disposition been Completed?: Yes Diagnosis: Asthma exacerbation Disposition: HOME/ ROUTINE Disposition Time: :45 Patient Plan: Discharge Condition: STABLE Discharge Instructions (ExitCare): Asthma (ED) Additional Instructions: Follow up with your doctor Return to ED for any new or worsening symptoms Prescriptions: Prednisone 50 mg PO DAILY #5 tab Referrals: Maria A Chatman MD [Primary Care Provider] - Follow up with primary Forms: [employer] ([place])
[2017-09-03 02:16] VITALS: BP 98/88; PULSE 98; RESP 18; O2SAT 100
== END 2017-09-03 02:20 | disposition home or self-care (01) ==
LOC: ED 22:20
DX: J45.901 Unspecified asthma with (acute) exacerbation (principal); Z87.891 Personal history of nicotine dependence
CPT/HCPCS: 80053; 85025; 87040; 96374; 99285; J2930; J7040

== ENCOUNTER 2018-09-11 23:37 | Emergency (ER) | payer OTHER ==
[2018-09-11] MEDS: Albuterol-Ipratrop 3 mg / 0.5 (3 ml) UD IH SCH ×2 (23:40→23:55)
[2018-09-11 23:43] VITALS: BMI 21.6
[2018-09-11] MEDS ORDERED: Albuterol-Ipratrop 3 mg / 0.5 (3 ml) UD ONE (23:43)
[2018-09-12] MEDS ORDERED: Magnesium Sulfate 2 gm/50 ml 2 GM/50 ML BAG IVPB ONE (00:04)
--- NOTE | 2018-09-12 00:06 | ED PDOC ---
Arrival/HPI - General Chief Complaint: Respiratory Distress Time Seen by Provider: 09/11/18 23:42 Historian: Patient - History of Present Illness Narrative History of Present Illness (Text): 09/11/18 23:40 27 year old female, whose past medical history includes asthma, presents to the emergency department via EMS presents complaining of worsening asthma for the past week. Patient reports for the past week her asthma has been feeling worse, but has been using her nebulizer treatments at home with minimal relief, but today her nebulizer treatments were not helping anymore. On route to ER, medics gave patient albuterol and duoneb. Patient reports dry cough, chest pain with shortness of breath, but denies any fever, chills, nausea, vomiting, diarrhea, urinary symptoms, back pain, neck pain, headache, dizziness, or any other complaints. PMD: Beatris Jenkins Time/Duration: 1 week Symptom Onset: Gradual Symptom Course: Unchanged, Worsening Activities at Onset: Light Context: Home Past Medical History - Provider Review Nursing Documentation Reviewed: Yes - Infectious Disease Hx of Infectious Diseases: None - Cardiac Hx Cardiac Disorders: No - Pulmonary Hx Asthma: Yes - Neurological Hx Neurological Disorder: No - HEENT Hx HEENT Disorder: No - Renal Hx Renal Disorder: No - Endocrine/Metabolic Hx Endocrine Disorders: No - Hematological/Oncological Hx Blood Disorders: No - Integumentary Hx Dermatological Disorder: No - Musculoskeletal/Rheumatological Hx Musculoskeletal Disorders: No Hx Falls: No - Gastrointestinal Hx Gastrointestinal Disorders: No - Genitourinary/Gynecological Hx Genitourinary Disorders: Yes (BREAST AUGMENTATION.LIPOSUCTION.FAT TRANSFER) - Psychiatric Hx Psychophysiologic Disorder: No Hx Substance Use: No - Surgical History Other/Comment: Breast augmentation. Liposuction. FAT TRANSFER - Anesthesia Hx Anesthesia: Yes Hx Anesthesia Reactions: No Hx Malignant Hyperthermia: No Family/Social History - Physician Review Nursing Documentation Reviewed: Yes Family/Social History: No Known Family HX Smoking Status: Former Smoker Hx Alcohol Use: Yes (OCCASIONALM WINE) Hx Substance Use: No Allergies/Home Meds Allergies/Adverse Reactions: Allergies pollen extracts Allergy (Verified 07/22/18 17:38) SHORTNESS OF BREATH maple Allergy (Uncoded 07/22/18 17:38) RASH Review of Systems - Physician Review All systems were reviewed & negative as marked: Yes - Review of Systems Constitutional: absent: Fevers, Other (Chills) Respiratory: SOB, Cough Cardiovascular: Chest Pain Gastrointestinal: absent: Diarrhea, Nausea, Vomiting Genitourinary Female: absent: Dysuria, Frequency, Hematuria Musculoskeletal: absent: Back Pain, Neck Pain Neurological: absent: Headache, Dizziness Physical Exam Vital Signs Reviewed: Yes Blood Pressure: Normal Pulse: Tachycardic Respiratory Rate: Tachypneic Appearance: Positive for: Well-Appearing, Non-Toxic, Comfortable Pain Distress: None Mental Status: Positive for: Alert and Oriented X 3 - Systems Exam Head: Present: Atraumatic, Normocephalic Pupils: Present: PERRL Extroacular Muscles: Present: EOMI Conjunctiva: Present: Normal Mouth: Present: Moist Mucous Membranes Neck: Present: Normal Range of Motion Respiratory/Chest: Present: Wheezes (expiratory wheeze diffusely ), Tachypneic. No: Respiratory Distress, Accessory Muscle Use Cardiovascular: Present: Tachycardic, Other (intermittent dry cough). No: Murmurs Abdomen: No: Tenderness, Distention, Peritoneal Signs Back: Present: Normal Inspection Upper Extremity: Present: Normal Inspection. No: Cyanosis, Edema Lower Extremity: Present: Normal Inspection. No: Edema, CALF TENDERNESS Neurological: Present: GCS=15, CN II-XII Intact, Speech Normal Skin: Present: Warm, Dry, Normal Color. No: Rashes Psychiatric: Present: Alert, Oriented x 3, Normal Insight, Normal Concentration Medical Decision Making ED Course and Treatment: 09/11/18 23:40 Impression: 27 year old female presents complaining of worsening asthma symptoms for the past week. Patient reports dry cough and chest pain with shortness of breath. Plan: -- EKG -- Magnesium Sulfate -- Solumedrol -- Duoneb -- Reassess and disposition Prior Visits: Notes and results from previous visits were reviewed. Progress Notes: Patient given additional duoneb here in the ED. Also gave magnesium and solumedrol. Patient asking for "something to calm me down", states that she feels anxious. 0.5mg ativan ivp given. On re-eval, patient sleeping comfortably. Easily arousable. Wheezing is greatly improved, almost completely resolved, on repeat lung auscultation. Patient states that she feels much better, and is ready to go home. Advised continuing asthma medications as prescribed. Return to the ED for any new or worsening symptoms. Otherwise follow up with PMD as outpatient. - Scribe Statement The provider has reviewed the documentation as recorded by the Rozina Garcia Provider Rozina Attestation: All medical record entries made by the Juneibfunmilayo were at my direction and personally dictated by me. I have reviewed the chart and agree that the record accurately reflects my personal performance of the history, physical exam, medical decision making, and the department course for this patient. I have also personally directed, reviewed, and agree with the discharge instructions and disposition. Disposition/Present on Arrival - Present on Arrival Any Indicators Present on Arrival: No History of DVT/PE: No History of Uncontrolled Diabetes: No Urinary Catheter: No History of Decub. Ulcer: No History Surgical Site Infection Following: None - Disposition Have Diagnosis and Disposition been Completed?: Yes Diagnosis: Asthma Disposition: HOME/ ROUTINE Disposition Time: 02:09 Condition: STABLE Discharge Instructions (ExitCare): Asthma, Adult (DC) Additional Instructions: COURTNEY MCGRATH, thank you for letting us take care of you today. Your provider was Janeth Alvarado MD and you were treated for ASTHMA. The emergency medical care you received today was directed at your acute symptoms. If you were prescribed any medication, please fill it and take as directed. It may take several days for your symptoms to resolve. Return to the Emergency Department if your symptoms worsen, do not improve, or if you have any other problems. Please contact your doctor or call one of the physicians/clinics you have been referred to that are listed on the Patient Visit Information form that is included in your discharge packet. Bring any paperwork you were given at discharge with you along with any medications you are taking to your follow up visit. Our treatment cannot replace ongoing medical care by a primary care provider outside of the emergency department. Thank you for allowing the [facility] team to be part of your care today. If you had an X-Ray or CT scan: A Radiologist will review the ED reading if any change in treatment is needed we will contact you. If you had a blood, urine, or wound culture: It will take several days for the results, if any change in treatment is needed we will contact you. If you had an STI test: It will take 48 hours for the results. Please call after 1 week if you have not heard back. Forms: [employer] ([place])
[2018-09-12] MEDS: Albuterol-Ipratrop 3 mg / 0.5 (3 ml) UD IH SCH (00:10)
[2018-09-12 01:00] VITALS: RESP 18
[2018-09-12 02:03] VITALS: BP 100/69; PULSE 84; O2SAT 99
== END 2018-09-12 02:25 | disposition home or self-care (01) ==
LOC: ED 23:37
DX: J45.909 Unspecified asthma, uncomplicated (principal); Z87.891 Personal history of nicotine dependence
CPT/HCPCS: 96365; 96375; 99285; J2060; J2930

== ENCOUNTER 2018-10-11 23:13 | Emergency (ER) | payer OTHER ==
[2018-10-11 23:14] VITALS: BMI 21.6
--- NOTE | 2018-10-11 23:19 | ED PDOC ---
Arrival/HPI - General Time Seen by Provider: 10/11/18 23:15 Historian: Patient, EMS - History of Present Illness Narrative History of Present Illness (Text): 10/11/18 23:18 Laura Phipps is a 27 year old female, whose past medical history includes asthma and seasonal allergies, who presents to the Emergency department brought in by EMS complaining of shortness of breath, wheezing, and some chest tightness tonight. Patient states symptoms are similar in quality to previous asthma symptoms. Patient received 1 Duoneb, magnesium sulfate, and Solu-medrol in the field with some relief. Patient denies any fever, chills, nausea, vomiting, diarrhea, neck pain, headache, dizziness, or any other complaints. Symptom Onset: Gradual Symptom Course: Unchanged Activities at Onset: Light Context: Home Past Medical History - Provider Review Nursing Documentation Reviewed: Yes - Infectious Disease Hx of Infectious Diseases: None - Cardiac Hx Cardiac Disorders: No - Pulmonary Hx Asthma: Yes - Neurological Hx Neurological Disorder: No - HEENT Hx HEENT Disorder: No - Renal Hx Renal Disorder: No - Endocrine/Metabolic Hx Endocrine Disorders: No - Hematological/Oncological Hx Blood Disorders: No - Integumentary Hx Dermatological Disorder: No - Musculoskeletal/Rheumatological Hx Musculoskeletal Disorders: No Hx Falls: No - Gastrointestinal Hx Gastrointestinal Disorders: No - Genitourinary/Gynecological Hx Genitourinary Disorders: Yes (BREAST AUGMENTATION.LIPOSUCTION.FAT TRANSFER) - Psychiatric Hx Psychophysiologic Disorder: No Hx Substance Use: No - Surgical History Other/Comment: Breast augmentation. Liposuction. FAT TRANSFER - Anesthesia Hx Anesthesia: Yes Hx Anesthesia Reactions: No Hx Malignant Hyperthermia: No Family/Social History - Physician Review Nursing Documentation Reviewed: Yes Family/Social History: Unknown Family HX Smoking Status: Former Smoker Hx Alcohol Use: Yes (OCCASIONALM WINE) Hx Substance Use: No Allergies/Home Meds Allergies/Adverse Reactions: Allergies pollen extracts Allergy (Verified 07/22/18 17:38) SHORTNESS OF BREATH maple Allergy (Uncoded 07/22/18 17:38) RASH Review of Systems - Physician Review All systems were reviewed & negative as marked: Yes - Review of Systems Constitutional: Normal. absent: Fevers Eyes: Normal ENT: Normal Respiratory: SOB, Wheezing Cardiovascular: Chest Pain (+chest tightness) Gastrointestinal: Normal. absent: Abdominal Pain, Diarrhea, Nausea, Vomiting Genitourinary Female: Normal. absent: Dysuria, Frequency, Hematuria, Urine Output Changes Musculoskeletal: Normal. absent: Back Pain, Neck Pain Skin: Normal. absent: Rash Neurological: Normal. absent: Headache, Dizziness Endocrine: Normal Hemo/Lymphatic: Normal Psychiatric: Normal Physical Exam Vital Signs Reviewed: Yes Temperature: Afebrile Blood Pressure: Normal Pulse: Regular Respiratory Rate: Normal Appearance: Positive for: Well-Appearing, Non-Toxic, Comfortable Pain Distress: None Mental Status: Positive for: Alert and Oriented X 3 - Systems Exam Head: Present: Atraumatic, Normocephalic Pupils: Present: PERRL Extroacular Muscles: Present: EOMI Conjunctiva: Present: Normal Mouth: Present: Moist Mucous Membranes Neck: Present: Normal Range of Motion Respiratory/Chest: Present: Wheezes (Expiratoryt wheezing bilaterally). No: Respiratory Distress, Accessory Muscle Use Cardiovascular: Present: Regular Rate and Rhythm, Normal S1, S2. No: Murmurs Abdomen: No: Tenderness, Distention, Peritoneal Signs Back: Present: Normal Inspection Upper Extremity: Present: Normal Inspection. No: Cyanosis, Edema Lower Extremity: Present: Normal Inspection. No: Edema Neurological: Present: GCS=15, CN II-XII Intact, Speech Normal Skin: Present: Warm, Dry, Normal Color. No: Rashes Psychiatric: Present: Alert, Oriented x 3, Normal Insight, Normal Concentration Medical Decision Making ED Course and Treatment: 10/11/18 23:18 Impression: 27 year old female complaining of shortness of breath, wheezing, and some chest tightness. Plan: -- Duoneb -- Reassess and disposition Prior Visits: Notes and results from previous visits were reviewed. Progress Notes: 10/12/18 00:08 Reviewed EKG, sinus tachycardia at [address] bpm[address] Non-specific ST/T wave changes. 10/12/18 01:40 On re-evaluation, pt states she feels much better, shortness of breath has resolved. Discussed plan for d/c home with pt, who verbalizes understanding. Pt instructed to f/u with PMD/clinic within 1 week or to return if she developed and new/worsening symptoms. Pt stakes she has an oral steroid at home, which she is going to start changing. - EKG Interpretation Interpreted by ED Physician: Yes Type: 12 lead EKG - Scribe Statement The provider has reviewed the documentation as recorded by the Scribe Arleen Juan All medical record entries made by the Rozina were at my direction and personally dictated by me. I have reviewed the chart and agree that the record accurately reflects my personal performance of the history, physical exam, medical decision making, and the department course for this patient. I have also personally directed, reviewed, and agree with the discharge instructions and disposition. Disposition/Present on Arrival - Present on Arrival Any Indicators Present on Arrival: No History of DVT/PE: No History of Uncontrolled Diabetes: No Urinary Catheter: No History of Decub. Ulcer: No History Surgical Site Infection Following: None - Disposition Have Diagnosis and Disposition been Completed?: Yes Diagnosis: Asthma exacerbation Disposition: HOME/ ROUTINE Disposition Time: 01:36 Patient Plan: Discharge Patient Problems: Current Active Problems Problem Status Onset Asthma exacerbation Acute Condition: GOOD Additional Instructions: Continue astma meds as previously prescribed/follow up with your doctor this week/any recurrent symptoms return to the emergency room
[2018-10-11] MEDS ORDERED: Albuterol-Ipratrop 3 mg / 0.5 (3 ml) UD ONE (23:21)
[2018-10-11] MEDS ORDERED: Albuterol-Ipratrop 3 mg / 0.5 (3 ml) UD IH STA (23:41)
[2018-10-12] MEDS ORDERED: Albuterol-Ipratrop 3 mg / 0.5 (3 ml) UD IH STA (00:10)
[2018-10-12 01:14] VITALS: BP 100/69; PULSE 106; RESP 19; O2SAT 100
--- NOTE | 2018-10-12 10:22 | CARD ---
APPROVED REPORT Date of service: 10/12/2018 EKG Measurement Heart [id number] <Conclusion> Sinus tachycardia Otherwise normal ECG
== END 2018-10-12 01:47 | disposition home or self-care (01) ==
LOC: ED 23:13
DX: J45.901 Unspecified asthma with (acute) exacerbation (principal); Z87.891 Personal history of nicotine dependence